=== PATIENT | female | born 1960 | race Caucasian/White ===

== ENCOUNTER 2020-05-23 12:52 | Outpatient (REF) | payer BC, SELFPAY ==
[2020-05-23 15:07] LABS: Alanine Aminotransferase 18 U/L (0-31); Aspartate Amino Transferase 19 U/L (5-31); Cholesterol 225 mg/dL; Glucose Fasting 96 mg/dL (60-99); HDL Cholesterol 63 mg/dL; LDL Cholesterol Calculated 129 mg/dl; Triglycerides 168 mg/dL
[2020-05-23 15:20] LABS: Vitamin D 25-OH Total 47.2 ng/mL (>30)
== END 2020-05-23 12:53 | disposition home or self-care (01) ==
LOC: HO.HMGCLDS 12:52
PROVIDERS: PCP Internal Medicine; Visit Provider Internal Medicine
DX: Z78.0 Asymptomatic menopausal state (principal); I10 Essential (primary) hypertension; Z00.01 Encounter for general adult medical examination with abnormal findings
CPT/HCPCS: 80061; 82306; 82947; 84450; 84460

== ENCOUNTER 2020-12-20 09:21 | Outpatient (REF) | payer BC, SELFPAY ==
[2020-12-20 11:15] LABS: MANUAL DIFF FLAG NO
[2020-12-20 11:27] LABS: Basophils Percent Auto 0.6 % (0-2); Eosinophils Absolute Auto 0.5 X10*3/uL (0.0-0.4); Hematocrit 35.9 % (37-47); Hemoglobin 11.7 g/dl (12.0-16.0); Imm Gran Abs Auto 0.02 X10*3/uL (0.00-0.03); Imm Gran Pct Auto 0.3 % (0.0-0.4); Lymphocytes Absolute Auto 1.8 X10*3/uL (1.2-4.9); Lymphocytes Percent Auto 24.9 % (20-40); Mean Corpuscular HGB Conc 32.6 g/dl (31.0-35.0); Mean Corpuscular Hemoglobin 28.3 pg (27.0-33.0); Mean Corpuscular Volume 86.7 fL (80-98); Mean Platelet Volume 12.2 fL (9.4-12.3); Monocytes Absolute Auto 0.5 X10*3/uL (0.1-1.2); Neutrophils Absolute Auto 4.2 X10*3/uL (2.0-8.3); Neutrophils Percent Auto 60.2 % (45-73); Platelet Count 200 X10*3/uL (160-400); Red Blood Count 4.14 X10*6/uL (4.20-5.50); Red Cell Distribution Width 13.3 % (11.0-16.0)
[2020-12-20 12:15] LABS: TSH reflex Free T4 0.93 uIU/mL (0.32-4.0); Vitamin D 25-OH Total 52.8 ng/mL (>30)
[2020-12-20 12:29] LABS: Alanine Aminotransferase 19 U/L (0-31); Anion Gap 15 (12-20); Aspartate Amino Transferase 20 U/L (5-31); Blood Urea Nitrogen 19 mg/dL (9-16); Calcium 9.8 mg/dL (8.4-10.2); Carbon Dioxide 24 mmol/L (22-29); Chloride 106 mmol/L (96-108); Cholesterol 208 mg/dL; Estimated Glomerular Filt Rate > 60; Glucose Fasting 100 mg/dL (60-99); HDL Cholesterol 64 mg/dL; LDL Cholesterol Calculated 118 mg/dl; Potassium 4.5 mmol/L (3.3-5.1); Sodium 140 mmol/L (135-145); Triglycerides 132 mg/dL
== END 2020-12-20 09:22 | disposition home or self-care (01) ==
LOC: HO.HMGCLDS 09:21
PROVIDERS: PCP Internal Medicine; Visit Provider Internal Medicine
DX: G47.00 Insomnia, unspecified (principal); I10 Essential (primary) hypertension; M85.859 Other specified disorders of bone density and structure, unspecified thigh; R73.01 Impaired fasting glucose; Z78.0 Asymptomatic menopausal state
CPT/HCPCS: 36415; 80048; 80061; 82306; 84443; 84450; 84460; 85025

== ENCOUNTER 2022-01-16 13:47 | Outpatient (REF) | payer BC, SELFPAY ==
[2022-01-16 16:27] LABS: MANUAL DIFF FLAG NO
[2022-01-16 16:29] LABS: Basophils Absolute Auto 0.1 X10*3/uL (0.0-0.2); Basophils Percent Auto 0.6 % (0-2); Eosinophils Absolute Auto 0.3 X10*3/uL (0.0-0.4); Eosinophils Percent Auto 4.1 % (0-4); Hematocrit 39.5 % (37.0-47.0); Imm Gran Abs Auto 0.03 X10*3/uL (0.00-0.03); Imm Gran Pct Auto 0.4 % (0.0-0.4); Lymphocytes Absolute Auto 1.9 X10*3/uL (1.2-4.9); Lymphocytes Percent Auto 24.1 % (20-40); Mean Corpuscular HGB Conc 32.9 g/dl (31.0-35.0); Mean Corpuscular Hemoglobin 29.2 pg (27.0-33.0); Mean Corpuscular Volume 88.8 fL (80.0-98.0); Mean Platelet Volume 11.7 fL (9.4-12.3); Monocytes Absolute Auto 0.7 X10*3/uL (0.1-1.2); Monocytes Percent Auto 8.5 % (2-11); Neutrophils Absolute Auto 4.9 x10*3/uL (2.0-8.3); Neutrophils Percent Auto 62.3 % (45-73); Platelet Count 241 X10*3/uL (160-400); Red Blood Count 4.45 X10*6/uL (4.20-5.50); Red Cell Distribution Width 13.9 % (11.0-16.0); White Blood Count 7.8 X10*3/uL (4.8-10.8)
[2022-01-16 16:42] LABS: Alanine Aminotransferase 19 U/L (0-31); Albumin Level 4.1 g/dL (3.5-5.0); Alkaline Phosphatase 100 U/L (39-117); Anion Gap 14 (12-20); Aspartate Amino Transferase 17 U/L (5-31); Bilirubin Total 0.7 mg/dL (0.0-1.0); Blood Urea Nitrogen 29 mg/dL (9-16); Calcium 9.9 mg/dL (8.4-10.2); Carbon Dioxide 28 mmol/L (22-29); Chloride 104 mmol/L (96-108); Estimated Glomerular Filt Rate > 60; Glucose Random 107 mg/dL (60-115); Potassium 4.9 mmol/L (3.3-5.1); Sodium 141 mmol/L (135-145)
[2022-01-16 16:43] LABS: Prothrombin Time 10.9 SEC (10.0-13.1)
[2022-01-16 16:46] LABS: Partial Thromboplastin Time 32.1 SEC (26.0-36.4)
== END 2022-01-16 13:48 | disposition home or self-care (01) ==
LOC: HO.HMGCLDS 13:47
PROVIDERS: Nurse Practitioner Family; PCP Internal Medicine; Visit Provider Internal Medicine
DX: Z13.89 Encounter for screening for other disorder (principal)
CPT/HCPCS: 36415; 80053; 85025; 85610; 85730

== ENCOUNTER 2022-06-06 10:07 | Outpatient (REF) | payer BC, SELFPAY ==
[2022-06-06 11:17] LABS: MANUAL DIFF FLAG NO
[2022-06-06 11:25] LABS: Basophils Percent Auto 0.7 % (0-2); Eosinophils Absolute Auto 0.5 X10*3/uL (0.0-0.4); Eosinophils Percent Auto 8.9 % (0-4); Hematocrit 37.5 % (37.0-47.0); Imm Gran Abs Auto 0.02 X10*3/uL (0.00-0.03); Imm Gran Pct Auto 0.3 % (0.0-0.4); Lymphocytes Absolute Auto 1.6 X10*3/uL (1.2-4.9); Mean Corpuscular Hemoglobin 28.6 pg (27.0-33.0); Mean Corpuscular Volume 89.5 fL (80.0-98.0); Mean Platelet Volume 11.9 fL (9.4-12.3); Monocytes Absolute Auto 0.4 X10*3/uL (0.1-1.2); Monocytes Percent Auto 7.5 % (2-11); Neutrophils Absolute Auto 3.2 x10*3/uL (2.0-8.3); Neutrophils Percent Auto 54.6 % (45-73); Platelet Count 204 X10*3/uL (160-400); Red Blood Count 4.19 X10*6/uL (4.20-5.50); Red Cell Distribution Width 13.4 % (11.0-16.0); White Blood Count 5.9 X10*3/uL (4.8-10.8)
[2022-06-06 11:37] LABS: Estimated Average Glucose 105 mg/dL; Hemoglobin A1c % 5.3 %
[2022-06-06 12:18] LABS: Alanine Aminotransferase 20 U/L (0-31); Anion Gap 12 (12-20); Aspartate Amino Transferase 18 U/L (5-31); Blood Urea Nitrogen 18 mg/dL (9-16); Calcium 9.3 mg/dL (8.4-10.2); Carbon Dioxide 27 mmol/L (22-29); Chloride 106 mmol/L (96-108); Cholesterol 244 mg/dL; Estimated Glomerular Filt Rate > 60; Glucose Fasting 115 mg/dL (60-99); HDL Cholesterol 65 mg/dL; Iron 79 mcg/dL (30-160); LDL Cholesterol Calculated 159 mg/dl; Percent Iron Saturation 26 % (15-50); Potassium 4.7 mmol/L (3.3-5.1); Sodium 140 mmol/L (135-145); Total Iron Binding Capacity 302 mcg/dL (228-428); Triglycerides 102 mg/dL; Unsaturated Iron Binding 223 ug/dL; Vitamin D 25-OH Total 36.6 ng/mL (>30)
== END 2022-06-06 10:08 | disposition home or self-care (01) ==
LOC: HO.HMGCLDS 10:07
PROVIDERS: Absent Provider Internal Medicine Gastroenterology; PCP Internal Medicine; Visit Provider Internal Medicine
DX: Z00.01 Encounter for general adult medical examination with abnormal findings (principal); I10 Essential (primary) hypertension; M85.859 Other specified disorders of bone density and structure, unspecified thigh; R73.01 Impaired fasting glucose; Z78.0 Asymptomatic menopausal state
CPT/HCPCS: 36415; 80048; 80061; 82306; 83036; 83540; 84450; 84460; 85025

== ENCOUNTER 2023-02-15 10:53 | Outpatient (AMB) | payer BC, SELFPAY ==
--- NOTE | 2023-02-15 10:57 | MHC.PC.OV ---
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 Allergies No Known Allergies Allergy (Verified 02/15/23 11:44) Medication List - Last Reconciled 02/15/23 by Haylie Hensley MD [id number] 50-300-40 mg 1 cap PO .bid PRN carvedilol 12.5 mg PO BID 90 days cholecalciferol (vitamin D3) 50 mcg PO DAILY flu vac qv 2019(18yr up)rc(PF) IM Lactobacillus rhamnosus GG (Culturelle) 1 cap PO DAILY losartan 100 mg PO DAILY Saccharomyces boulardii 250 mg PO DAILY zolpidem ER 12.5 mg PO BEDTIME PRN Tobacco use date assessed: 02/15/23 Dental Screening Dental Screen Date: 02/15/23 Did you have a dental visit in the last 12 months?: Yes Did you have a dental problem in the last 6 months where you did not have access to dental care?: No Was dental information given to patient?: Patient has dentist HPI Yearly exam HPI Details 62-year-old lady here today for her physical exam. She has chronic insomnia currently takes zolpidem ER 12.5 mg at bedtime which has been helping. Has hypertension currently on losartan 100 mg daily and carvedilol 12.5 mg twice a day. She has history of tension type headache, takes Fioricet as needed. Also has chronic reflux, takes probiotics which has been helping. Complains of tinnitus in both ears, with no decreased hearing reported, no headaches or disequilibrium reported. Has tried masking this with white noise which has not been ineffective. She also reports decreased sensation over dorsal aspect of right foot, no history of trauma or any strenuous exertion reported. No accompanying weakness. [facility] Medical History (Updated 02/15/23 @ 12:04 by Haylie Hensley MD) Tinnitus, bilateral Numbness of right foot Obesity (BMI 30-39.9) Chronic insomnia Facial lesion Lesion of skin of scalp Menopause Osteoarthritis, knee Impaired fasting glucose GERD (gastroesophageal reflux disease) Anxiety Osteopenia of hip Essential hypertension Insomnia Tension-type headache Surgical History History of ERCP Hx laparoscopic cholecystectomy History of total knee arthroplasty S/P bilateral breast reduction Family History Father CVA (cerebral vascular accident) CAD (coronary artery disease) Mother HTN (hypertension) Lung cancer Breast CA Sister Alcoholism Parkinson disease Substance abuse Social History Housing: House Alcohol intake: current Alcohol intake frequency: a few times a month Patient Tobacco Use Status: Never used Tobacco e-Cigarette/Vaping Use: Never Used Second Hand Smoke Exposure: No service: No Current occupational status: employed Cognitive needs: No Hearing needs: No Vision needs: No Female Reproductive History Menstrual Date of last pap smear: 07/06/21 History of abnormal pap smear: No Date of Mammogram: 01/07/23 History of abnormal mammogram: No Other: bone density done unsure date Questionnaire PHQ-9 Over the last 2 weeks, how often have you been bothered by any of the following problems? 1. Little interest or pleasure in doing things: not at all 2. Feeling down, depressed, or hopeless: not at all 3. Trouble falling or staying asleep, or sleeping too much: several days 4. Feeling tired or having little energy: several days 5. Poor appetite or overeating: not at all 6. Feeling bad about yourself - or that you are a failure or have let yourself or your family down: not at all 7. Trouble concentrating on things, such as reading the newspaper or watching television: not at all 8. Moving or speaking so slowly that other people could have noticed. Or the opposite - being so fidgety or restless that you have been moving around a lot more than usual: not at all 9. Thoughts that you would be better off or of hurting yourself in some way: not at all Total score: 2 Depression Screening Interpretation: Negative 97560 - PHQ-9 Billing: Yes Source: Developed by Drs. Tanner Woods, Renate Lloyd, Jasvir Galvan and colleagues, with an educational jennifer from [employer]. Thrive Questionnaire Date Thrive assessed: 02/15/23 I am a: Patient What is your living situation today?: I have a steady place to live Within the past 12 months, did the food you bought not last and you didn't have the money to get more?: Never true Within the past 12 months, did you worry whether your food would run out before you got money to buy more?: Never true Do you have trouble paying for medicines?: No Do you have trouble getting transportation to medical appointments?: No Do you have trouble paying your heating and electricity bill?: No Do you have trouble taking care of your child, family member or friend?: No Do you have trouble with day-to-day activities such as bathing, preparing meals, shopping, managing finances, etc.?: No Are you currently unemployed and looking for a job?: No Are you interested in more education?: No Please select the resources that you would like help with: None Currently or been in a relationship where the following occur: no concerns reported AUDIT C Alcohol Use Questionnaire (AUDIT-C) 1. How often do you have a drink containing alcohol?: 2-4 times a month 2. How many drinks containing alcohol do you have on a typical day when you are drinking?: 1 or 2 3. How often do you have six or more drinks on one occasion?: Never Total Score: 2 RAMONA-7 AMB Questionnaire RAMONA-7 Date RAMONA - 7 assessed: 02/15/23 Feeling nervous, anxious, or on edge: 0 = Not at all Not being able to stop or control worryin = Not at all Worrying too much about different things: 0 = Not at all Trouble relaxin = Several days Being so restless that it is hard to sit still: 1 = Several days Becoming easily annoyed or irritable: 0 = Not at all Feeling afraid as if something awful might happen: 0 = Not at all Total RAMONA-7 score (0-4 normal; 5-9 mild; 10-14 moderate; 15-21 severe): 2 Source: Developed by Drs. Tanner Woods, Jasvir Orourke and colleagues, with an educational jennifer from [employer]. RAMONA-7 Assessment Billing RAMONA-7 Assessment Tool: RAMONA-7 Assessment 60930 Review of Systems Const Denies chills, Denies fever(s), Denies frequent falls and Denies malaise Eyes Denies change in vision ENT Denies vertigo, Denies dizziness and Denies sore throat Card Denies chest pain at rest, Denies chest pain with activity, Denies diaphoresis, Denies dyspnea and Denies dyspnea on exertion Resp Denies cough, Denies dyspnea, Denies dyspnea on exertion and Denies wheezing GI Denies abdominal pain, Denies melena, Denies hematochezia, Denies constipation, Denies diarrhea and Denies loose stools Denies hematuria Musc Denies numbness and Denies tingling Skin/Breast Denies lesions Neuro Denies vertigo, Denies dizziness, Denies frequent falls, Denies numbness and Denies tingling Psych Reports no additional complaints Endo Reports no additional complaints Joce/Lymph Reports no additional complaints Aller/Immun Denies wheezing Physical exam (Primary Care) Vital Signs: Last Vital Signs Pulse 62 02/15/23 11:04 BP 120/80 02/15/23 11:04 Pulse Ox 97 02/15/23 11:04 Oxygen Delivery Method Room Air 02/15/23 11:04 BMI result Body Mass Index 39.9 BMI Assessment/Plan discussion: High BMI High, discussed plan: lifestyle, weight reduction, dietary and physical activity Tobacco/Smoking Status: Tobacco use Status Tobacco use date assessed 02/15/23 02/15/23 11:09 Patient Tobacco Use Status Never used Tobacco 02/15/23 10:57 e-Cigarette/Vaping Use Never Used 02/15/23 10:57 PHQ-9: PHQ-9 Score PHQ-9: Total score 2 02/15/23 11:55 Depression Screening Interpretation: Negative Thrive Assessment: Date of Thrive Assessment Date Thrive assessed 02/15/23 02/15/23 11:14 Currently or been in a relationship where the following occur: no concerns reported Const General: cooperative, comfortable and no acute distress Nutritional Appearance: obese Orientation/consciousness: patient oriented x3 HENMT Head: Yes normocephalic and Yes atraumatic Ears: hearing grossly normal bilaterally, external ears normal, TM's normal bilaterally and EAC's normal General nose exam: Normal external nose present Face and sinus: Yes face symmetric Mouth: Normal oral and palatal mucosa present Eyes General: appearance normal, both eyes and all related structures Neck Neck: Yes normal visual inspection, Yes no lymphadenopathy and Yes no meningeal signs Chest Breast/axilla palpation: normal palpation of the breasts Resp Effort & Inspection: normal respiratory effort Auscultation: clear to auscultation bilaterally Cardio Rate: regular rate Rhythm: regular rhythm Heart sounds: S1 normal heart sound present, S2 normal heart sound present and no murmurs GI Inspection: Yes obesity Palpation (GI): Soft to palpation, nontender, no guarding and no masses Auscultation: normal bowel sounds General: Yes no CVA tenderness Back/Spine/Pelvis Back: no CVA tenderness and No back tenderness Skin General skin exam: no rashes or lesions noted Neuro Other: Decreased sensation to touch and pinprick over dorsal aspect of right foot General: patient oriented x3, gait normal, tone normal, moves all extremities, no meningeal signs, no focal motor deficits and CN's II-XI intact bilaterally Extrem General: Yes full ROM, Yes no joint enlargement, Yes no clubbing, cyanosis or edema and Yes normal gait Psych Appearance: grossly normal Mental Status: mental status grossly normal Speech and movement: Normal speech and movement present Affect: normal affect Attitude: cooperative Thought process: Normal thought process present Thought content: Normal thought content present Insight: Good insight present (Psych) Judgement: Good judgement present (Psych) Assessment and Plan Assessment & Plan (1) Annual visit for general adult medical examination with abnormal findings: Code(s): Z00.01 - Encounter for general adult medical examination with abnormal findings Plan: Will check appropriate labs. Recommended dental visit every 6 months and regular eye exams, at least every 2 years. Take adequate calcium in diet and vitamin-D 3 at 2000 IU per cap once a day, in addition to weight-bearing exercises to help maintain good muscle tone and weight control. Instructed to do self-breast exam, and continue to get yearly mammogram, she is up-to-date with her screening colonoscopy done by Dr Foster, and is up-to-date with her cervical cancer screening. Advised to get her COVID booster and her yearly flu shot, up-to-date with her Tdap, had 1 dose of her Shingrix vaccine, reminded to get her series completed, (2) Essential hypertension: Code(s): I10 - Essential (primary) hypertension Plan: Blood pressure at goal of less than 130/80. Continue with current medication. Reinforced importance of following a low sodium diet, getting regular exercise, and lowering stress levels. (3) Osteopenia of hip: Code(s): M85.859 - Other specified disorders of bone density and structure, unspecified thigh Plan: Advised to do regular weight-bearing exercise, take adequate calcium from dietary sources and continue taking vitamin-D 3 at least 2000 units daily (4) GERD (gastroesophageal reflux disease): Code(s): K21.9 - Gastro-esophageal reflux disease without esophagitis Plan: Takes probiotics which has been helping (5) Impaired fasting glucose: Code(s): R73.01 - Impaired fasting glucose Plan: Your fasting blood sugars elevated above 100 mg/dL. Impaired glucose metabolism O2 at risk for developing diabetes mellitus type 2, as well as heart attack and stroke later on. Lifestyle changes at just weight loss, healthy eating habits, and regular exercise are important, and can prevent the progression to diabetes (6) Osteoarthritis, knee: Code(s): M17.10 - Unilateral primary osteoarthritis, unspecified knee (7) Chronic insomnia: Code(s): F51.04 - Psychophysiologic insomnia Plan: Continued on zolpidem as needed (8) Obesity (BMI 30-39.9): Code(s): E66.9 - Obesity, unspecified Plan: Currently sees Dr. Gardner in [facility], and is scheduled to get her gastric band removed and will be doing a sleeve gastrectomy later this year (9) Numbness of right foot: Code(s): R20.0 - Anesthesia of skin Plan: Ordered nerve conduction study of right lower extremity (10) Tinnitus, bilateral: Code(s): H93.13 - Tinnitus, bilateral Plan: referral to ENT for further evaluation and management of her tinnitus Orders: Orders Complete Blood Count Auto Diff 02/15/23 E66.9 - Obesity, unspecified, F51.04 - Psychophysiologic insomnia, I10 - Essential (primary) hypertension, K21.9 - Gastro-esophageal reflux disease without esophagitis, M17.10 - Unilateral primary osteoarthritis, unspecified knee, M85.859 - Other specified disorders of bone density and structure, unspecified thigh, R73.01 - Impaired fasting glucose, Z00.01 - Encounter for general adult medical examination with abnormal findings, Z78.0 - Asymptomatic menopausal state Lipid Panel 02/15/23 E66.9 - Obesity, unspecified, F51.04 - Psychophysiologic insomnia, I10 - Essential (primary) hypertension, K21.9 - Gastro-esophageal reflux disease without esophagitis, M17.10 - Unilateral primary osteoarthritis, unspecified knee, M85.859 - Other specified disorders of bone density and structure, unspecified thigh, R73.01 - Impaired fasting glucose, Z00.01 - Encounter for general adult medical examination with abnormal findings, Z78.0 - Asymptomatic menopausal state Vitamin B12 and Folate 02/15/23 E66.9 - Obesity, unspecified, F51.04 - Psychophysiologic insomnia, I10 - Essential (primary) hypertension, K21.9 - Gastro-esophageal reflux disease without esophagitis, M17.10 - Unilateral primary osteoarthritis, unspecified knee, M85.859 - Other specified disorders of bone density and structure, unspecified thigh, R73.01 - Impaired fasting glucose, Z00.01 - Encounter for general adult medical examination with abnormal findings, Z78.0 - Asymptomatic menopausal state Comprehensive Barton. Panel Fast 02/15/23 E66.9 - Obesity, unspecified, F51.04 - Psychophysiologic insomnia, I10 - Essential (primary) hypertension, K21.9 - Gastro-esophageal reflux disease without esophagitis, M17.10 - Unilateral primary osteoarthritis, unspecified knee, M85.859 - Other specified disorders of bone density and structure, unspecified thigh, R73.01 - Impaired fasting glucose, Z00.01 - Encounter for general adult medical examination with abnormal findings, Z78.0 - Asymptomatic menopausal state Vitamin D 25-OH Total 02/15/23 E66.9 - Obesity, unspecified, F51.04 - Psychophysiologic insomnia, I10 - Essential (primary) hypertension, K21.9 - Gastro-esophageal reflux disease without esophagitis, M17.10 - Unilateral primary osteoarthritis, unspecified knee, M85.859 - Other specified disorders of bone density and structure, unspecified thigh, R73.01 - Impaired fasting glucose, Z00.01 - Encounter for general adult medical examination with abnormal findings, Z78.0 - Asymptomatic menopausal state ECG 12 lead EKG 04/10/23 I10 - Essential (primary) hypertension, Z01.818 - Encounter for other preprocedural examination NE nerve conduction velocity 02/15/23 R20.0 - Anesthesia of skin Referrals Ear/Nose/Throat Referral H93.13 - Tinnitus, bilateral Medications: Refilled zolpidem ER 12.5 mg PO BEDTIME PRN 30 tabs 0RF insomnia Coding Level of Care Code Est Pt Prev Care 40-64y(98368) Diagnoses Annual visit for general adult medical examination with abnormal findings Z00.01 Essential hypertension I10 Osteopenia of hip M85.859 GERD (gastroesophageal reflux disease) K21.9 Impaired fasting glucose R73.01 Osteoarthritis, knee M17.10 Chronic insomnia F51.04 Obesity (BMI 30-39.9) E66.9 Numbness of right foot R20.0 Tinnitus, bilateral H93.13 Additional Codes RAMONA-7 Assessment Billing - RAMONA-7 Assessment Tool: RAMONA-7 Assessment 68525 ([id number])
[2023-02-15 11:04] VITALS: BP 120/80; PULSE 62; O2SAT 97; BMI 39.9
== END 2023-02-15 12:58 | disposition home or self-care (01) ==
PROVIDERS: Visit Provider Internal Medicine
DX: Z00.00 Encounter for general adult medical examination without abnormal findings (principal); I10 Essential (primary) hypertension; K21.9 Gastro-esophageal reflux disease without esophagitis; M85.859 Other specified disorders of bone density and structure, unspecified thigh; R73.01 Impaired fasting glucose; M17.10 Unilateral primary osteoarthritis, unspecified knee; F51.04 Psychophysiologic insomnia; E66.9 Obesity, unspecified; R20.0 Anesthesia of skin; H93.13 Tinnitus, bilateral
CPT/HCPCS: 99396

== ENCOUNTER 2023-12-30 09:33 | Outpatient (REF) | payer BC, SELFPAY ==
[2023-12-30 13:10] LABS: MANUAL DIFF FLAG NO
[2023-12-30 13:26] LABS: Basophils Percent Auto 0.6 % (0-2); Eosinophils Absolute Auto 0.3 X10*3/uL (0.0-0.4); Eosinophils Percent Auto 3.6 % (0-4); Hematocrit 39.4 % (37.0-47.0); Hemoglobin 12.7 g/dl (12.0-16.0); Imm Gran Abs Auto 0.02 X10*3/uL (0.00-0.03); Imm Gran Pct Auto 0.3 % (0.0-0.4); Lymphocytes Absolute Auto 1.4 X10*3/uL (1.2-4.9); Lymphocytes Percent Auto 19.4 % (20-40); Mean Corpuscular HGB Conc 32.2 g/dl (31.0-35.0); Mean Corpuscular Hemoglobin 29.2 pg (27.0-33.0); Mean Corpuscular Volume 90.6 fL (80.0-98.0); Mean Platelet Volume 12.2 fL (9.4-12.3); Monocytes Absolute Auto 0.5 X10*3/uL (0.1-1.2); Monocytes Percent Auto 7.1 % (2-11); Neutrophils Absolute Auto 4.9 x10*3/uL (2.0-8.3); Platelet Count 186 X10*3/uL (160-400); Red Blood Count 4.35 X10*6/uL (4.20-5.50); Red Cell Distribution Width 13.1 % (11.0-16.0); White Blood Count 7.2 X10*3/uL (4.8-10.8)
[2023-12-30 13:48] LABS: Alanine Aminotransferase 16 U/L (0-31); Alkaline Phosphatase 130 U/L (39-117); Anion Gap 14 (12-20); Aspartate Amino Transferase 19 U/L (5-31); Bilirubin Total 1.1 mg/dL (0.0-1.0); Blood Urea Nitrogen 12 mg/dL (9-16); Calcium 9.6 mg/dL (8.4-10.2); Carbon Dioxide 26 mmol/L (22-29); Chloride 105 mmol/L (96-108); Cholesterol 201 mg/dL (<200); Estimated Glomerular Filt Rate > 60; Glucose Fasting 109 mg/dL (60-99); HDL Cholesterol 59 mg/dL (>40); Iron 102 mcg/dL (30-160); LDL Cholesterol Calculated 121 mg/dL (<100); Percent Iron Saturation 41 % (15-50); Potassium 4.5 mmol/L (3.3-5.1); Sodium 140 mmol/L (135-145); Total Iron Binding Capacity 250 mcg/dL (228-428); Total Protein 6.9 g/dL (6.5-8.0); Triglycerides 108 mg/dL (<150); Unsaturated Iron Binding 148 ug/dL
[2023-12-30 14:10] LABS: Folate 10.9 ng/mL (> or = 4.0); Vitamin B12 487 pg/mL (200-900)
== END 2023-12-30 09:34 | disposition home or self-care (01) ==
LOC: HO.HMGCLDS 09:33
PROVIDERS: PCP Internal Medicine; Visit Provider Internal Medicine
DX: Z00.01 Encounter for general adult medical examination with abnormal findings (principal); I10 Essential (primary) hypertension; M85.859 Other specified disorders of bone density and structure, unspecified thigh; K21.9 Gastro-esophageal reflux disease without esophagitis; R73.01 Impaired fasting glucose; Z78.0 Asymptomatic menopausal state; M17.10 Unilateral primary osteoarthritis, unspecified knee; F51.04 Psychophysiologic insomnia; E66.9 Obesity, unspecified
CPT/HCPCS: 36415; 80053; 80061; 82306; 82607; 82746; 83540; 85025

== ENCOUNTER 2024-01-02 13:42 | Outpatient (AMB) | payer BC, SELFPAY ==
[2024-01-02 13:44] VITALS: BP 122/80; PULSE 59; O2SAT 96; BMI 30.7
--- NOTE | 2024-01-02 13:44 | A.OFFPC_ITS ---
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: No Accompanied by: Self / Same As Patient Allergies No Known Allergies Allergy (Verified 01/02/24 13:53) Medication List - Last Reconciled 01/02/24 by Haylie Hensley MD [id number] 50-300-40 mg 1 cap PO .bid PRN carvedilol 12.5 mg PO BID 90 days cholecalciferol (vitamin D3) 50 mcg PO DAILY dicyclomine 20 mg PO BID Lactobacillus rhamnosus GG (Culturelle) 1 cap PO DAILY losartan 100 mg PO DAILY Saccharomyces boulardii 250 mg PO DAILY zolpidem ER 12.5 mg PO BEDTIME PRN Tobacco use date assessed: 01/02/24 Fall risk assessment: No Falls in past year Last assessed Fall Risk: 01/02/24 Dental Screening Dental Screen Date: 01/02/24 Did you have a dental visit in the last 12 months?: Yes Did you have a dental problem in the last 6 months where you did not have access to dental care?: No Was dental information given to patient?: Patient has dentist HPI Follow Up HPI Details 63-year-old lady here today complaining of pain and increased sensitivity on dorsal aspect of right big toe. This has been present now for the last several weeks, no history of any injury. Patient states that it even bothers her to have like it touching her toe when she goes to bed. She also has a productive cough which has been present now for the last week, no improvement with sode-qav-mfaycso cough medications, has been having intermittent episodes of wheezing and chest congestion. Denies any accompanying fever or shortness of breath [facility] Medical History Tinnitus, bilateral Numbness of right foot Obesity (BMI 30-39.9) Chronic insomnia Facial lesion Lesion of skin of scalp Menopause Osteoarthritis, knee Impaired fasting glucose GERD (gastroesophageal reflux disease) Anxiety Osteopenia of hip Essential hypertension Insomnia Tension-type headache Surgical History History of ERCP Hx laparoscopic cholecystectomy History of total knee arthroplasty S/P bilateral breast reduction Family History Father CVA (cerebral vascular accident) CAD (coronary artery disease) Mother HTN (hypertension) Lung cancer Breast CA Sister Alcoholism Parkinson disease Substance abuse Social History Housing: House Alcohol intake: current Alcohol intake frequency: a few times a month Patient Tobacco Use Status: Never used Tobacco e-Cigarette/Vaping Use: Never Used Second Hand Smoke Exposure: No service: No Current occupational status: employed Cognitive needs: No Hearing needs: No Vision needs: No Questionnaire PHQ-9 Over the last 2 weeks, how often have you been bothered by any of the following problems? Depression Screening Interpretation: Negative Depression Screening Done: Yes 34580 - PHQ-9 Billing: Patient declined-do not bill Source: Developed by Drs. Tanner Woods, Renate Lloyd, Jasvir Galvan and colleagues, with an educational jennifer from [employer]. Thrive Questionnaire Date Thrive assessed: 01/02/24 I am a: Patient What is your living situation today?: I choose not to answer this question Within the past 12 months, did the food you bought not last and you didn't have the money to get more?: Never true Within the past 12 months, did you worry whether your food would run out before you got money to buy more?: Never true Do you have trouble paying for medicines?: No Do you have trouble getting transportation to medical appointments?: No Do you have trouble paying your heating and electricity bill?: No Do you have trouble taking care of your child, family member or friend?: No Do you have trouble with day-to-day activities such as bathing, preparing meals, shopping, managing finances, etc.?: No Are you currently unemployed and looking for a job?: No Are you interested in more education?: No Please select the resources that you would like help with: Housing/Detention Currently or been in a relationship where the following occur: No concerns reported THRIVE Score: 0 AUDIT C Alcohol Use Questionnaire (AUDIT-C) 1. How often do you have a drink containing alcohol?: Monthly or less 2. How many drinks containing alcohol do you have on a typical day when you are drinking?: 1 or 2 Total Score: 1 Score Reviewed/Action Taken: Yes RAMONA-7 AMB Questionnaire RAMONA-7 Date RAMONA - 7 assessed: 01/02/24 Feeling nervous, anxious, or on edge: 0 = Not at all Not being able to stop or control worryin = Not at all Worrying too much about different things: 0 = Not at all Trouble relaxin = Several days Being so restless that it is hard to sit still: 1 = Several days Becoming easily annoyed or irritable: 0 = Not at all Feeling afraid as if something awful might happen: 0 = Not at all Total RAMONA-7 score (0-4 normal; 5-9 mild; 10-14 moderate; 15-21 severe): 2 Source: Developed by Drs. Tanner Woods, Renate Lloyd, Jasvir Galvan and colleagues, with an educational jennifer from [employer]. RAMONA-7 Assessment Billing RAMONA-7 Assessment Tool: RAMONA-7 Assessment 32028 Review of Systems Const All systems reviewed & are unremarkable except as noted in HPI and below Physical exam (Primary Care) Vital Signs: Last Vital Signs Pulse 59 01/02/24 13:44 BP 122/80 01/02/24 13:44 Pulse Ox 96 01/02/24 13:44 Oxygen Delivery Method Room Air 01/02/24 13:44 BMI result Body Mass Index 30.7 BMI Assessment/Plan discussion: High BMI High, discussed plan: lifestyle, weight reduction, dietary and physical activity Tobacco/Smoking Status: Tobacco use Status Tobacco use date assessed 01/02/24 01/02/24 13:46 Patient Tobacco Use Status Never used Tobacco 01/02/24 13:46 e-Cigarette/Vaping Use Never Used 01/02/24 13:46 Depression Screening Interpretation: Negative Thrive Assessment: Date of Thrive Assessment Date Thrive assessed 01/02/24 01/02/24 13:46 Currently or been in a relationship where the following occur: No concerns reported Const General: cooperative, comfortable and no acute distress Nutritional Appearance: obese Orientation/consciousness: patient oriented x3 HENMT Head: Yes normocephalic and Yes atraumatic Ears: hearing grossly normal bilaterally and external ears normal General nose exam: Normal external nose present Face and sinus: Yes face symmetric Mouth: Normal oral and palatal mucosa present Eyes General: appearance normal, both eyes and all related structures Neck Neck: Yes normal visual inspection, Yes no lymphadenopathy and Yes no meningeal signs Resp Auscultation: wheezes scattered wheezes Cardio Rate: regular rate Rhythm: regular rhythm Heart sounds: S1 normal heart sound present, S2 normal heart sound present and no murmurs GI Inspection: Yes obesity Palpation (GI): Soft to palpation, nontender, no guarding and no masses Auscultation: normal bowel sounds General: Yes no CVA tenderness Back/Spine/Pelvis Back: no CVA tenderness and No back tenderness Skin General skin exam: no rashes or lesions noted Neuro Other: Decreased sensation to touch and pinprick over dorsal aspect of right foot General: patient oriented x3, gait normal, tone normal, moves all extremities, no meningeal signs, no focal motor deficits and CN's II-XI intact bilaterally Extrem General: Yes full ROM, Yes no joint enlargement, Yes no clubbing, cyanosis or edema and Yes normal gait Results Reviewed Results Reviewed: Name: Reta Harris Age/Sex: 63/F : 1960 Unit#: [id number] Attend Dr: Haylie Hensley MD Re12/30/23 Status: DEP REF Location: [facility] [address] Disch: SPEC : [id number] FARHAN: 12/30/23 STATUS: COMP REQ : [id number] RECD: 12/30/23-[address]: Haylie Hensley MD COMP: 12/30/231007 ENTERED: 12/30/23-1006 [facility] DR: ORDERED: CBC Auto Diff Test Result Flag Reference WBC 7.2 4.8-10.8 X10*3/ uL RBC 4.35 4.20-5.50 X10*6/uL HGB 12.7 12.0-16.0 g/dl HCT 39.4 37.0-47.0 % MCV 90.6 80.0-98.0 fL MCH 29.2 27.0-33.0 pg MCHC 32.2 31.0-35.0 g/dl RDW 13.1 11.0-16.0 % PLT 186 160-400 X10*3/uL MPV 12.2 9.4-12.3 fL Neut Pct Auto 69.0 45-73 % ImGran Pct Auto 0.3 0.0-0.4 % Lymp Pct Auto 19.4 L 20-40 % [place] Pct Auto 7.1 2-11 % Eos Pct Auto 3.6 0-4 % Baso Pct Auto 0.6 0-2 % NRBC Pct Auto 0.0 0.0-0.2 /100WBC ANC Neut Abs # 4.9 2.0-8.3 x10*3/uL ImGran Abs Auto 0.02 0.00-0.03 X10*3/uL Lymph Abs Auto 1.4 1.2-4.9 X10*3/uL [place] Abs Auto 0.5 0.1-1.2 X10*3/uL Eos Abs Auto 0.3 0.0-0.4 X10*3/uL Baso Abs Auto 0.0 0.0-0.2 X10*3/uL NRBC Abs Auto 0.000 0.0-0.012 X10*3/uL Name: Reta Harris Age/Sex: 63/F : 1960 Unit#: [id number] Attend Dr: Haylie Hensley MD Re12/30/23 Status: DEP REF Location: [facility] [address] Disch: SPEC : [id number] FARHAN: 12/30/23-100 STATUS: COMP REQ : [id number] RECD: 12/30/23-[address]: Haylie Hensley MD COMP: 12/30/23-1405 ENTERED: 12/30/23-[address]: ORDERED: CMP Fast, IRON PROF, Lipid Panel, Vitamin D 25-OH Test Result Flag Reference Sodium 140 135-145 mmol/L Potassium 4.5 3.3-5.1 mmol/L CL 105 96-108 mmol/L CO2 26 22-29 mmol/L Gap 14 12-20 BUN 12 9-16 mg/dL Creat 0.88 0.5-1.4 mg/dL EGFR > 60 NOTE: For -[place] individuals, multiply the result by 1.210. Chronic Kidney Disease: Estimated GFR < 60 mL/min/1.73m2 Severe Kidney Disease: Estimated GFR < 15 mL/min/1.73m2 FBS 109 H 60-99 mg/dL A fasting glucose from 100-125 mg/dl is considered impaired (pre-diabetes). CA 9.6 8.4-10.2 mg/dL Iron 102 30-160 mcg/dL TIBC 250 228-428 mcg/dL Saturation 41 15-50 % UIBC 148 ug/dL Total Bili 1.1 H 0.0-1.0 mg/dL AST (GOT) 19 5-31 U/L ALT (GPT) 16 0-31 U/L Protein, Total 6.9 6.5-8.0 g/dL Alb 4.0 3.5-5.0 g/dL Triglyceride 108 <150 mg/dL Desirable Triglyceride: less than 150 mg/dL Borderline High Triglyceride 150-199 mg/dL High Triglyceride: 200-499 mg/dL Very High Triglyceride: greater than or equal to 5OO mg/dL Cholesterol 201 H <200 mg/dL Desirable Cholesterol: less than 200 mg/dL Borderline High Cholesterol: 200-239 mg/dL High Cholesterol: greater than 239 mg/dL LDL Calculated 121 H <100 mg/dL Desirable LDL: less than 100 mg/dL Near Optimal/Above Optimal LDL: 110-129 mg/dL Borderline High LDL: 130-159 mg/dL High LDL: 160-189 mg/dL Very High LDL: greater than or equal to 190 mg/dL HDL 59 >40 mg/dL Desirable HDL: greater than 40 mg/dL Note: This HDL assay may give artificially low results in patients with liver disease. Alk Phos 130 H 39-117 U/L Vit D 25-OH Tot 65.0 >30 ng/mL Health Based Reference Values* < 20 ng/mL Deficient 20-30 ng/mL Insufficient > 30 ng/mL Sufficient Assessment and Plan Assessment & Plan (1) Paresthesia of left foot: Code(s): R20.2 - Paresthesia of skin Plan: Empirically prescribed gabapentin 100 mg to take at bedtime, may increase it to 100 mg if needed. Advised to call us back if no improvement on gabapentin (2) Acute bronchitis: Code(s): J20.9 - Acute bronchitis, unspecified Plan: Prescription sent for azithromycin Dosepak to take as directed return to clinic if no improvement after 5 days Orders: Orders Comprehensive [place]. Panel Fast 12/30/23 E66.9 - Obesity, unspecified, I10 - Essential (primary) hypertension, R73.01 - Impaired fasting glucose Complete Blood Count Auto Diff 12/30/23 E66.9 - Obesity, unspecified, I10 - Essential (primary) hypertension, R73.01 - Impaired fasting glucose Lipid Panel 12/30/23 E66.9 - Obesity, unspecified, I10 - Essential (primary) hypertension, R73.01 - Impaired fasting glucose IRON PROFILE 12/30/23 E66.9 - Obesity, unspecified, I10 - Essential (primary) hypertension, R73.01 - Impaired fasting glucose Medications: New gabapentin 100 mg PO BEDTIME 30 caps 1RF azithromycin For 250 mg dose pack: take 500 mg today (day 1), then 250 mg for 4 days (days 2-5) PO 6 tabs 0RF Coding Level of Care Code Est Pt Level 4 (82938) Diagnoses Paresthesia of left foot R20.2 Acute bronchitis J20.9 Additional Codes RAMONA-7 Assessment Billing - RAMONA-7 Assessment Tool: RAMONA-7 Assessment 21465 ([id number])
== END 2024-01-02 14:13 | disposition home or self-care (01) ==
PROVIDERS: PCP Internal Medicine; Visit Provider Internal Medicine
DX: R20.2 Paresthesia of skin (principal); J20.9 Acute bronchitis, unspecified
CPT/HCPCS: 99214

== ENCOUNTER 2024-02-20 15:29 | Outpatient (AMB) | payer BC, SELFPAY ==
[2024-02-20 16:12] VITALS: BP 130/90; PULSE 56; O2SAT 99; BMI 32.2
--- NOTE | 2024-02-20 16:12 | A.OFFPC_ITS ---
Vital Signs 02/20/24 16:12 Height 5 ft 2 in Weight 176 lb BMI 32.2 BP 130/90 H Blood Pressure Location Lt brachial Position Sitting Pulse 56 Pulse Source Pulse Oximeter Pulse Oximetry (%) 99 Oxygen Delivery Method Room Air Intake Visit Reasons: Follow up for numbness in right toe Intake Note: Pt is here today f/u numbness on Rt grt toe and top of foot no improvement Allergies No Known Allergies Allergy (Verified 02/23/24 09:14) Medication List - Last Reconciled 02/23/24 by Haylie Hensley MD albuterol sulfate 90 mcg/actuation 2 puffs inhalation Q6H PRN teoxrejlec-qigvfxmyneugi-pdsq 50-300-40 mg 1 cap PO .bid PRN carvedilol 12.5 mg PO BID 90 days cholecalciferol (vitamin D3) 50 mcg PO DAILY dicyclomine 20 mg PO BID gabapentin 300 mg PO BEDTIME Lactobacillus rhamnosus GG (Culturelle) 1 cap PO DAILY losartan 100 mg PO DAILY Saccharomyces boulardii 250 mg PO DAILY zolpidem ER 12.5 mg PO BEDTIME PRN Tobacco use date assessed: 01/02/24 Fall risk assessment: No Falls in past year Last assessed Fall Risk: 02/20/24 Dental Screening Dental Screen Date: 02/20/24 Did you have a dental visit in the last 12 months?: Yes Did you have a dental problem in the last 6 months where you did not have access to dental care?: No Was dental information given to patient?: Patient has dentist HPI Follow up for numbness in right toe HPI Details 63-year-old lady here today complaining still of persistent pain and numbness on top of her right great toe. This has been present now for the last several months and started after she received a massage. Currently on gabapentin 100 mg at bedtime, which she initially has helped but now pain is back. It gets worse when she wears closed shoes, pain aggravated by touching blankets, and constant rubbing rubbing a foot on the inside of the shoe. She is also here for follow-up on recent lab results. Which showed elevated fasting glucose at 109 mg/dL, and elevated alkaline phosphatase elevated alkaline phosphatase, but rest of her liver function test came within normal limits and lipid levels are also within normal limits [facility] Medical History (Updated 02/23/24 @ 10:44 by Haylie Hensley MD) Hyperesthesia Tinnitus, bilateral Numbness of right foot Obesity (BMI 30-39.9) Chronic insomnia Facial lesion Lesion of skin of scalp Menopause Osteoarthritis, knee Impaired fasting glucose GERD (gastroesophageal reflux disease) Anxiety Osteopenia of hip Essential hypertension Insomnia Tension-type headache Surgical History History of ERCP Hx laparoscopic cholecystectomy History of total knee arthroplasty S/P bilateral breast reduction Family History Father CVA (cerebral vascular accident) CAD (coronary artery disease) Mother HTN (hypertension) Lung cancer Breast CA Sister Alcoholism Parkinson disease Substance abuse Social History Housing: House Alcohol intake: current Alcohol intake frequency: a few times a month Patient Tobacco Use Status: Never used Tobacco e-Cigarette/Vaping Use: Never Used Second Hand Smoke Exposure: No service: No Current occupational status: employed Cognitive needs: No Hearing needs: No Vision needs: No Questionnaire Thrive Questionnaire Date Thrive assessed: 01/02/24 I am a: Patient What is your living situation today?: I choose not to answer this question Within the past 12 months, did the food you bought not last and you didn't have the money to get more?: Never true Within the past 12 months, did you worry whether your food would run out before you got money to buy more?: Never true Do you have trouble paying for medicines?: No Do you have trouble getting transportation to medical appointments?: No Do you have trouble paying your heating and electricity bill?: No Do you have trouble taking care of your child, family member or friend?: No Do you have trouble with day-to-day activities such as bathing, preparing meals, shopping, managing finances, etc.?: No Are you currently unemployed and looking for a job?: No Are you interested in more education?: No Please select the resources that you would like help with: None Currently or been in a relationship where the following occur: No concerns reported THRIVE Score: 0 AUDIT C Alcohol Use Questionnaire (AUDIT-C) 1. How often do you have a drink containing alcohol?: 2-4 times a month 2. How many drinks containing alcohol do you have on a typical day when you are drinking?: 1 or 2 3. How often do you have six or more drinks on one occasion?: Never Total Score: 2 RAMONA-7 AMB Questionnaire RAMONA-7 Date RAMONA - 7 assessed: 01/02/24 Feeling nervous, anxious, or on edge: 0 = Not at all Not being able to stop or control worryin = Not at all Worrying too much about different things: 0 = Not at all Trouble relaxin = Several days Being so restless that it is hard to sit still: 1 = Several days Becoming easily annoyed or irritable: 0 = Not at all Feeling afraid as if something awful might happen: 0 = Not at all Total RAMONA-7 score (0-4 normal; 5-9 mild; 10-14 moderate; 15-21 severe): 2 Source: Developed by Drs. Tanner Woods, Renate Lloyd, Jasvir Galvan and colleagues, with an educational jennifer from [employer]. Review of Systems Const All systems reviewed & are unremarkable except as noted in HPI and below Physical exam (Primary Care) Vital Signs: Last Vital Signs Pulse 56 02/20/24 16:12 BP 130/90 H 02/20/24 16:12 Pulse Ox 99 02/20/24 16:12 Oxygen Delivery Method Room Air 02/20/24 16:12 BMI result Body Mass Index 32.2 Tobacco/Smoking Status: Tobacco use Status Tobacco use date assessed 01/02/24 02/20/24 16:18 Patient Tobacco Use Status Never used Tobacco 02/20/24 16:18 e-Cigarette/Vaping Use Never Used 02/20/24 16:18 Thrive Assessment: Date of Thrive Assessment Date Thrive assessed 01/02/24 02/20/24 16:18 Currently or been in a relationship where the following occur: No concerns reported Const General: comfortable and no acute distress Nutritional Appearance: obese Orientation/consciousness: patient oriented x3 HENMT Head: Yes normocephalic Ears: external ears normal General nose exam: Normal external nose present Face and sinus: Yes face symmetric Mouth: Normal oral and palatal mucosa present Eyes General: appearance normal, both eyes and all related structures Neck Neck: Yes no lymphadenopathy Resp Auscultation: clear to auscultation bilaterally Cardio Rate: regular rate Rhythm: regular rhythm Heart sounds: S1 normal heart sound present and S2 normal heart sound present Back/Spine/Pelvis Back: No back tenderness Skin General skin exam: no rashes or lesions noted Neuro Other: Hyperesthesia noted on dorsal aspect left foot above right great toe and MTP General: patient oriented x3, gait normal, tone normal, moves all extremities, no focal motor deficits and CN's II-XI intact bilaterally Extrem General: Yes full ROM, Yes no joint enlargement, Yes no clubbing, cyanosis or edema and Yes normal gait Results Reviewed Results Reviewed: Name: Reta Harris Age/Sex: 63/F : 1960 Unit#: [id number] Attend Dr: Haylie Hensley MD Re12/30/23 Status: DEP REF Location: [facility] Disch: SPEC : [id number] FARHAN: 12/30/23-1004 STATUS: COMP REQ : [id number] RECD: 12/30/23-[address]: Haylie Hensley MD COMP: 12/30/23-1405 ENTERED: 12/30/23-[address]: ORDERED: CMP Fast, IRON PROF, Lipid Panel, Vitamin D 25-OH Test Result Flag Reference Sodium 140 135-145 mmol/L Potassium 4.5 3.3-5.1 mmol/L CL 105 96-108 mmol/L CO2 26 22-29 mmol/L Gap 14 12-20 BUN 12 9-16 mg/dL Creat 0.88 0.5-1.4 mg/dL EGFR > 60 NOTE: For -[place] individuals, multiply the result by 1.210. Chronic Kidney Disease: Estimated GFR < 60 mL/min/1.73m2 Severe Kidney Disease: Estimated GFR < 15 mL/min/1.73m2 FBS 109 H 60-99 mg/dL A fasting glucose from 100-125 mg/dl is considered impaired (pre-diabetes). CA 9.6 8.4-10.2 mg/dL Iron 102 30-160 mcg/dL TIBC 250 228-428 mcg/dL Saturation 41 15-50 % UIBC 148 ug/dL Total Bili 1.1 H 0.0-1.0 mg/dL AST (GOT) 19 5-31 U/L ALT (GPT) 16 0-31 U/L Protein, Total 6.9 6.5-8.0 g/dL Alb 4.0 3.5-5.0 g/dL Triglyceride 108 <150 mg/dL Desirable Triglyceride: less than 150 mg/dL Borderline High Triglyceride 150-199 mg/dL High Triglyceride: 200-499 mg/dL Very High Triglyceride: greater than or equal to 5OO mg/dL Cholesterol 201 H <200 mg/dL Desirable Cholesterol: less than 200 mg/dL Borderline High Cholesterol: 200-239 mg/dL High Cholesterol: greater than 239 mg/dL LDL Calculated 121 H <100 mg/dL Desirable LDL: less than 100 mg/dL Near Optimal/Above Optimal LDL: 110-129 mg/dL Borderline High LDL: 130-159 mg/dL High LDL: 160-189 mg/dL Very High LDL: greater than or equal to 190 mg/dL HDL 59 >40 mg/dL Desirable HDL: greater than 40 mg/dL Note: This HDL assay may give artificially low results in patients with liver disease. Alk Phos 130 H 39-117 U/L Vit D 25-OH Tot 65.0 >30 ng/mL Health Based Reference Values* < 20 ng/mL Deficient 20-30 ng/mL Insufficient > 30 ng/mL Sufficient Name: Reta Harris Age/Sex: 63/F : 1960 Unit#: [id number] Attend Dr: Haylie Hensley MD Re12/30/23 Status: DEP REF Location: [facility] Disch: SPEC : [id number] FARHAN: 12/30/23 STATUS: COMP REQ : [id number] RECD: 12/30/[address]: Haylie Hensley MD COMP: 12/30/23 ENTERED: 12/30/[address] [facility] [address]: ORDERED: CBC Auto Diff Test Result Flag Reference WBC 7.2 4.8-10.8 X10*3/uL RBC 4.35 4.20-5.50 X10*6/uL HGB 12.7 12.0-16.0 g/dl HCT 39.4 37.0-47.0 % MCV 90.6 80.0-98.0 fL MCH 29.2 27.0-33.0 pg MCHC 32.2 31.0-35.0 g/dl RDW 13.1 11.0-16.0 % PLT 186 160-400 X10*3/uL MPV 12.2 9.4-12.3 fL Neut Pct Auto 69.0 45-73 % ImGran Pct Auto 0.3 0.0-0.4 % Lymp Pct Auto 19.4 L 20-40 % [place]ocking Pct Auto 7.1 2-11 % Eos Pct Auto 3.6 0-4 % Baso Pct Auto 0.6 0-2 % NRBC Pct Auto 0.0 0.0-0.2 /100WBC ANC Neut Abs # 4.9 2.0-8.3 x10*3/uL ImGran Abs Auto 0.02 0.00-0.03 X10*3/uL Lymph Abs Auto 1.4 1.2-4.9 X10*3/uL [place]ing Abs Auto 0.5 0.1-1.2 X10*3/uL Eos Abs Auto 0.3 0.0-0.4 X10*3/uL Baso Abs Auto 0.0 0.0-0.2 X10*3/uL NRBC Abs Auto 0.000 0.0-0.012 X10*3/uL Assessment and Plan Assessment & Plan (1) Hyperesthesia: Code(s): R20.3 - Hyperesthesia Plan: Over dorsal aspect of right great toe and right MTP. Ordered nerve conduction study and referral to podiatry and neurology ordered. Ordered serum magnesium, vitamin-D level. Increased gabapentin dose to 300 mg at bedtime (2) Numbness of right foot: Code(s): R20.0 - Anesthesia of skin Plan: Nerve conduction study ordered (3) Impaired fasting glucose: Code(s): R73.01 - Impaired fasting glucose Plan: Your previous fasting blood sugars were elevated above 100 mg/dL. Impaired glucose metabolism increases the risk for developing diabetes mellitus type 2, as well as heart attack and stroke later on. Lifestyle changes that promotes weight loss, healthy eating habits, and regular exercise are important, and can prevent the progression to diabetes , repeat hemoglobin A1c ordered for six- month (4) Essential hypertension: Code(s): I10 - Essential (primary) hypertension Plan: Hypertension stable controlled on present treatment, continue with carvedilol 12.5 mg twice a day and losartan 100 mg daily. Repeat another BS basic metabol ic panel, lipid panel liver enzymes in six-months Orders: Orders Aspartate Amino Transferase 08/08/24 E66.9 - Obesity, unspecified, I10 - Essential (primary) hypertension, R73.01 - Impaired fasting glucose, Z78.0 - Asymptomatic menopausal state NE nerve conduction velocity 02/20/24 R20.0 - Anesthesia of skin Lipid Panel 08/08/24 E66.9 - Obesity, unspecified, I10 - Essential (primary) hypertension, R73.01 - Impaired fasting glucose, Z78.0 - Asymptomatic menopausal state Alanine Aminotransferase 08/08/24 E66.9 - Obesity, unspecified, I10 - Essential (primary) hypertension, R73.01 - Impaired fasting glucose, Z78.0 - Asymptomatic menopausal state Basic Metabolic Panel Fasting 08/08/24 E66.9 - Obesity, unspecified, I10 - Essential (primary) hypertension, R73.01 - Impaired fasting glucose, Z78.0 - Asymptomatic menopausal state Hemoglobin A1c 08/08/24 E66.9 - Obesity, unspecified, I10 - Essential (primary) hypertension, R73.01 - Impaired fasting glucose, Z78.0 - Asymptomatic menopausal state Vitamin D 25-OH Total 08/08/24 E66.9 - Obesity, unspecified, I10 - Essential (primary) hypertension, R73.01 - Impaired fasting glucose, Z78.0 - Asymptomatic menopausal state Magnesium 08/08/24 E66.9 - Obesity, unspecified, I10 - Essential (primary) hypertension, R73.01 - Impaired fasting glucose, Z78.0 - Asymptomatic menopausal state Referrals Neurology Referral R20.0 - Anesthesia of skin Podiatry Referral R20.0 - Anesthesia of skin Medications: New gabapentin 300 mg PO BEDTIME 30 caps 1RF Coding Level of Care Code Est Pt Level 4 (98597) Diagnoses Hyperesthesia R20.3 Numbness of right foot R20.0 Impaired fasting glucose R73.01 Essential hypertension I10
== END 2024-02-20 17:04 | disposition home or self-care (01) ==
PROVIDERS: PCP Internal Medicine; Visit Provider Internal Medicine
DX: R20.3 Hyperesthesia (principal); R20.0 Anesthesia of skin; R73.01 Impaired fasting glucose; I10 Essential (primary) hypertension
CPT/HCPCS: 99214

== ENCOUNTER 2024-03-20 12:48 | Outpatient (REF) | payer BC, SELFPAY ==
--- NOTE | 2024-03-20 | EMG_ITS ---
Chief complaint: Over a year of numbness on dorsal and plantar aspect of right foot. Pressure on right big toe. History of lumbar fusion 20 years ago, right leg radiculopathy at that time which improved after fusion. History of bilateral knee replacements 2018. Reason for referral: Evaluate for radiculopathy versus neuropathy Referred by: Dr. Hensley Procedure done: Right lower extremity NCS/EMG Precautions and/or limitations: Prior lumbar fusion The limb temperature was monitored continuously and remained between 32-36 degrees C during the performance of the NCS. Ulnar motor NCS was performed with moderate elbow flexion between 70-90 degrees, with across-elbow distance of 10 cm. Nerve Conduction Studies Anti Sensory Summary Table ?Stim Site NR Onset (ms) Norm Onset (ms) Peak (ms) Norm Peak (ms) O-P Amp (?V) Norm O-P Amp Site1 Site2 Delta-0 (ms) Dist (cm) Ramesh (m/s) Norm Ramesh (m/s) Right Sup Peron Anti Sensory (Ankle) Lateral Leg ? 1.5 2.3 <4.4 5.7 >5.0 Lateral Leg Ankle 1.5 14.0 93 Right Sural Anti Sensory (Lat Mall) Calf ? 2.8 3.8 <4.0 13.1 >5.0 Calf Lat Mall 2.8 14.0 50 Motor Summary Table ?Stim Site NR Onset (ms) Norm Onset (ms) O-P Amp (mV) Norm O-P Amp iAmp (mV) Amp (1st) (%) Site1 Site2 Delta-0 (ms) Dist (cm) Ramesh (m/s) Norm Ramesh (m/s) Right Peroneal Motor (Ext Dig Brev) Ankle ? 5.4 <4.0 5.0 >2.5 6.6 100.0 Ankle Ext Dig Brev 5.4 0.0 B Fib ? 11.0 4.2 5.8 84.0 B Fib Ankle 5.6 28.0 50 >40 Poplt ? 11.9 4.7 6.4 94.0 Poplt B Fib 0.9 6.0 67 >40 Right Tibial Motor (Abd Estevez Brev) Ankle ? 4.0 <5 8.0 >2.5 10.0 100.0 Ankle Abd Estevez Brev 4.0 0.0 Knee ? 12.0 7.1 9.1 88.8 Knee Ankle 8.0 38.0 48 >40 EMG ?Side Muscle Nerve Root Ins Act Fibs Psw Amp Dur Poly Recrt Int Pat Comment Right AbdHallucis MedPlantar S1-2 Nml Nml Nml Nml Nml 0 Nml Complete Right AntTibialis Dp Br Peron L4-5 Nml Nml Nml Nml Nml 0 Nml Complete Right PostTibialis Tibial L5, S1 Nml Nml Nml Nml Nml 0 Nml Complete Right MedGastroc Tibial S1-2 Nml Nml Nml Nml Nml 0 Nml Complete Right VastusMed Femoral L2-4 Nml Nml Nml Nml Nml 0 Nml Complete Right Peroneus Long Sup Br Peron L5-S1 Nml Nml Nml Nml Nml 0 Nml Complete FINDINGS: Right peroneal nerve showed prolonged distal latency, normal amplitude and normal conduction velocity. All other nerves tested, including right superficial peroneal sensory nerve, were within normal. Concentric needle EMG was performed in selected muscles of the right lower extremity. Study did not reveal signs of electric abnormalities as shown in the table above. IMPRESSION: 1. This is an abnormal study. 2. 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 3. There is no electrodiagnostic evidence for tibial neuropathy. lumbosacral plexopathy, lumbar radiculopathy, or peripheral neuropathy. Thank you for your kind referral. Glory Douglass MD, [place] Board Certified, [place] Board [employer] and Rehabilitation (ABPMR) Board Certified, [place] Board of Electrodiagnostic [employer] (ABEM) [place] [id number] [facility]
== END 2024-03-20 12:49 | disposition home or self-care (01) ==
LOC: HO.NEURO 12:48
PROVIDERS: PCP Internal Medicine; Visit Provider Internal Medicine
DX: R20.0 Anesthesia of skin (principal)
CPT/HCPCS: 95886; 95908

== ENCOUNTER → 2024-03-20 12:53 | Outpatient (BNV) | payer BC, SELFPAY | PROVIDERS: PCP Internal Medicine; Visit Provider Physical Medicine & Rehabilitation | DX: R20.0 Anesthesia of skin (principal); G62.89 Other specified polyneuropathies | CPT/HCPCS: 95886; 95908 ==

== ENCOUNTER 2024-07-02 14:56 | Outpatient (AMB) | payer BC, SELFPAY ==
[2024-07-02 15:04] VITALS: BP 126/74; PULSE 68; RESP 14; TEMP 36.7; O2SAT 98; BMI 32.7
--- NOTE | 2024-07-02 15:04 | MHC.PC.OV ---
Vital Signs 07/02/24 15:04 Height 5 ft 2 in Weight 179 lb BMI 32.7 BP 126/74 Blood Pressure Location Rt brachial Position Sitting Respiration 14 Pulse 68 Pulse Source Pulse Oximeter Temp 98.1 F Temp Source Oral Pulse Oximetry (%) 98 Oxygen Delivery Method Room Air Intake Visit Reasons: Numbness in toe f/u Intake Note: Pt is here today c/o Rt grt toe numbness Allergies No Known Allergies Allergy (Verified 07/02/24 15:56) Medication List - Last Reconciled 07/02/24 by Haylie Hensley MD albuterol sulfate 90 mcg/actuation 2 puffs inhalation Q6H PRN jyyqmugmnw-vvrzobtslhyxi-slmm 50-300-40 mg 1 cap PO .bid PRN carvedilol 12.5 mg PO BID 90 days cholecalciferol (vitamin D3) 50 mcg PO DAILY dicyclomine 20 mg PO BID losartan 100 mg PO DAILY Saccharomyces boulardii 250 mg PO DAILY zolpidem ER 12.5 mg PO BEDTIME PRN Tobacco use date assessed: 07/02/24 Fall risk assessment: No Falls in past year Last assessed Fall Risk: 07/02/24 Dental Screening Dental Screen Date: 07/02/24 Did you have a dental visit in the last 12 months?: Yes Did you have a dental problem in the last 6 months where you did not have access to dental care?: No Was dental information given to patient?: Patient has dentist HPI Numbness in toe f/u HPI Details 64-year-old lady here today for follow-up. Has been having experiencing tingling and numbness in right lower extremity going down to right big toe, with nerve conduction study showing chronic peroneal neuropathy. Denies having had any direct trauma to the area, no prolonged immobilization. She has been seen at [facility] Physical therapy and had therapeutic exercises, and dry needling, to release peroneal nerve, and patient has received relief with treatment given. Still having occasional numbness and tingling in right big toe, but she is still continue with the wound exercises taught her at physical therapy [facility] Medical History (Updated 07/02/24 @ 16:03 by Haylie Hensley MD) Peroneal neuropathy Hyperesthesia Tinnitus, bilateral Numbness of right foot Obesity (BMI 30-39.9) Chronic insomnia Facial lesion Lesion of skin of scalp Menopause Osteoarthritis, knee Impaired fasting glucose GERD (gastroesophageal reflux disease) Anxiety Osteopenia of hip Essential hypertension Insomnia Tension-type headache Surgical History History of ERCP Hx laparoscopic cholecystectomy History of total knee arthroplasty S/P bilateral breast reduction Family History Father CVA (cerebral vascular accident) CAD (coronary artery disease) Mother HTN (hypertension) Lung cancer Breast CA Sister Alcoholism Parkinson disease Substance abuse Social History Housing: House Alcohol intake: current Alcohol intake frequency: a few times a month Patient Tobacco Use Status: Never used Tobacco e-Cigarette/Vaping Use: Never Used Second Hand Smoke Exposure: No service: No Current occupational status: employed Cognitive needs: No Hearing needs: No Vision needs: No Questionnaire PHQ-9 Over the last 2 weeks, how often have you been bothered by any of the following problems? 1. Little interest or pleasure in doing things: not at all 2. Feeling down, depressed, or hopeless: not at all 3. Trouble falling or staying asleep, or sleeping too much: not at all 4. Feeling tired or having little energy: not at all 5. Poor appetite or overeating: not at all 6. Feeling bad about yourself - or that you are a failure or have let yourself or your family down: not at all 7. Trouble concentrating on things, such as reading the newspaper or watching television: not at all 8. Moving or speaking so slowly that other people could have noticed. Or the opposite - being so fidgety or restless that you have been moving around a lot more than usual: not at all 9. Thoughts that you would be better off or of hurting yourself in some way: not at all Total score: 0 Depression Screening Interpretation: Negative Depression Screening Done: Yes 84784 - PHQ-9 Billing: Yes Source: Developed by Drs. Tanner Woods, Renate Lloyd, Jasvir Galvan and colleagues, with an educational jennifer from [employer]. Thrive Questionnaire Date Thrive assessed: 07/02/24 I am a: Patient What is your living situation today?: I have a steady place to live Within the past 12 months, did the food you bought not last and you didn't have the money to get more?: Never true Within the past 12 months, did you worry whether your food would run out before you got money to buy more?: Never true Do you have trouble paying for medicines?: No Do you have trouble getting transportation to medical appointments?: No Do you have trouble paying your heating and electricity bill?: No Do you have trouble taking care of your child, family member or friend?: No Do you have trouble with day-to-day activities such as bathing, preparing meals, shopping, managing finances, etc.?: No Are you currently unemployed and looking for a job?: No Are you interested in more education?: No Please select the resources that you would like help with: None Currently or been in a relationship where the following occur: No concerns reported THRIVE Score: 0 AUDIT C Alcohol Use Questionnaire (AUDIT-C) 1. How often do you have a drink containing alcohol?: 2-4 times a month 2. How many drinks containing alcohol do you have on a typical day when you are drinking?: 1 or 2 3. How often do you have six or more drinks on one occasion?: Never Total Score: 2 RAMONA-7 AMB Questionnaire RAMONA-7 Date RAMONA - 7 assessed: 07/02/24 Feeling nervous, anxious, or on edge: 0 = Not at all Not being able to stop or control worryin = Not at all Worrying too much about different things: 0 = Not at all Trouble relaxin = Several days Being so restless that it is hard to sit still: 1 = Several days Becoming easily annoyed or irritable: 0 = Not at all Feeling afraid as if something awful might happen: 0 = Not at all Total RAMONA-7 score (0-4 normal; 5-9 mild; 10-14 moderate; 15-21 severe): 2 Source: Developed by Drs. Tanner Woods, Renate Lloyd, Jasvir Galvan and colleagues, with an educational jennifer from [employer]. Review of Systems Const All systems reviewed & are unremarkable except as noted in HPI and below Physical exam (Primary Care) Vital Signs: Last Vital Signs Temp 98.1 F 07/02/24 15:04 Pulse 68 07/02/24 15:04 Resp 14 07/02/24 15:04 BP 126/74 07/02/24 15:04 Pulse Ox 98 07/02/24 15:04 Oxygen Delivery Method Room Air 07/02/24 15:04 BMI result Body Mass Index 32.7 Tobacco/Smoking Status: Tobacco use Status Tobacco use date assessed 07/02/24 07/02/24 15:06 Patient Tobacco Use Status Never used Tobacco 07/02/24 15:06 e-Cigarette/Vaping Use Never Used 07/02/24 15:06 PHQ-9: PHQ-9 Score PHQ-9: Total score 0 07/02/24 15:06 Depression Screening Interpretation: Negative Thrive Assessment: Date of Thrive Assessment Date Thrive assessed 07/02/24 07/02/24 15:06 Currently or been in a relationship where the following occur: No concerns reported Const General: comfortable and no acute distress Orientation/consciousness: patient oriented x3 Back/Spine/Pelvis Back: No back tenderness Skin General skin exam: no rashes or lesions noted Neuro General: patient oriented x3, gait normal, tone normal, moves all extremities, no focal motor deficits and CN's II-XI intact bilaterally Extrem General: Yes full ROM, Yes no joint enlargement, Yes no clubbing, cyanosis or edema and Yes normal gait Coding Level of Care Code Est Pt Level 3 (16439) Diagnoses Peroneal neuropathy G57.30 Additional Codes PHQ-9 - 30314 - PHQ-9 Billing: Yes ([id number]) Assessment & Plan Assessment & Plan (1) Peroneal neuropathy: Code(s): G57.30 - Lesion of lateral popliteal nerve, unspecified lower limb Category: Medical Plan: Improving with physical therapy, already completed, still continuing to do exercises taught at physical therapy. Patient interested in also trying acupuncture, she is also exploring going to go acupuncture Orders: Orders Vitamin B12 and Folate Today Z98.890 - Other specified postprocedural states
== END 2024-07-02 15:58 | disposition home or self-care (01) ==
PROVIDERS: PCP Internal Medicine; Visit Provider Internal Medicine
DX: G57.30 Lesion of lateral popliteal nerve, unspecified lower limb (principal)

== ENCOUNTER → 2024-07-02 14:56 | Outpatient (BNVA) | payer BC, SELFPAY | PROVIDERS: PCP Internal Medicine; Visit Provider Internal Medicine | DX: G57.30 Lesion of lateral popliteal nerve, unspecified lower limb (principal) | CPT/HCPCS: 96127 ==

== ENCOUNTER 2024-09-21 09:24 | Outpatient (AMB) | payer BC, SELFPAY ==
--- NOTE | 2024-09-21 10:25 | A.OFFPC_ITS ---
Vital Signs 09/21/24 10:35 Height 5 ft 2 in Weight 180 lb BMI 32.9 BP 122/70 Blood Pressure Location Lt brachial Position Sitting Respiration 17 Pulse 56 Pulse Source Pulse Oximeter Temp 98.1 F Temp Source Oral Pulse Oximetry (%) 96 Oxygen Delivery Method Room Air Intake Visit Reasons: PE Intake Note: Pt is here today for her PE: , papsmear 07/06/21, colonoscopy 08/09/23 Allergies No Known Allergies Allergy (Verified 09/21/24 10:27) Medication List - Last Reconciled 10/04/24 by Haylie Hensley MD plxvnukzym-atdommmrwrpkw-dapw 50-300-40 mg 1 cap PO .bid PRN carvedilol 12.5 mg PO BID 90 days cholecalciferol (vitamin D3) 50 mcg PO DAILY dicyclomine 20 mg PO BID losartan 100 mg PO DAILY Saccharomyces boulardii 250 mg PO DAILY zolpidem ER 12.5 mg PO BEDTIME PRN Tobacco use date assessed: 09/21/24 Fall risk assessment: No Falls in past year Last assessed Fall Risk: 09/21/24 Dental Screening Dental Screen Date: 09/21/24 Did you have a dental visit in the last 12 months?: Yes Did you have a dental problem in the last 6 months where you did not have access to dental care?: No Was dental information given to patient?: Patient has dentist HPI PE HPI Details 64-year-old lady here today for her phys ical exam. She has chronic insomnia currently taking zolpidem ER 12.5 mg at bedtime, which has been helping. Has hypertension stable and controlled on present treatment with losartan 100 mg daily and carvedilol 12.5 mg twice a day. Takes an occasional Fioricet for tension headache. Currently on dicyclomine 20 mg 1 tablet twice a day for treatment of IBS, currently followed by Dr. Foster at [facility] clinic. She is up-to-date with her screening mammogram and cervical cancer screening, goes bone density scan and screening colonoscopy. Had recent fasting labs done August 2024 which showed elevated fasting glucose with a normal hemoglobin A1c at 5.9%, fasting lipids showed elevated cholesterol and LDL cholesterol with normal triglycerides and HDL cholesterol, vitamin-D levels within normal limits. [facility] Medical History (Updated 10/04/24 @ 14:19 by Haylie Hensley MD) Dyslipidemia Osteopenia of multiple sites Peroneal neuropathy Hyperesthesia Tinnitus, bilateral Numbness of right foot Obesity (BMI 30-39.9) Chronic insomnia Facial lesion Lesion of skin of scalp Menopause Osteoarthritis, knee Impaired fasting glucose GERD (gastroesophageal reflux disease) Anxiety Essential hypertension Insomnia Tension-type headache Surgical History History of ERCP Hx laparoscopic cholecystectomy History of total knee arthroplasty S/P bilateral breast reduction Family History Father CVA (cerebral vascular accident) CAD (coronary artery disease) Mother HTN (hypertension) Lung cancer Breast CA Sister Alcoholism Parkinson disease Substance abuse Social History Housing: House Alcohol intake: current Alcohol intake frequency: a few times a month Patient Tobacco Use Status: Never used Tobacco e-Cigarette/Vaping Use: Never Used Second Hand Smoke Exposure: No service: No Current occupational status: employed Cognitive needs: No Hearing needs: No Vision needs: No Female Reproductive History Menstrual Date of last pap smear: 07/06/21 (Goes to [facility] O[facility]) Questionnaire PHQ-9 Over the last 2 weeks, how often have you been bothered by any of the following problems? 1. Little interest or pleasure in doing things: not at all 2. Feeling down, depressed, or hopeless: not at all 3. Trouble falling or staying asleep, or sleeping too much: not at all 4. Feeling tired or having little energy: not at all 5. Poor appetite or overeating: not at all 6. Feeling bad about yourself - or that you are a failure or have let yourself or your family down: not at all 7. Trouble concentrating on things, such as reading the newspaper or watching television: not at all 8. Moving or speaking so slowly that other people could have noticed. Or the opposite - being so fidgety or restless that you have been moving around a lot more than usual: not at all 9. Thoughts that you would be better off or of hurting yourself in some way: not at all Total score: 0 Depression Screening Interpretation: Negative Depression Screening Done: Yes 90507 - PHQ-9 Billing: Yes Source: Developed by Drs. Tanner Woods, Jasvir Orourke and colleagues, with an educational jennifer from [employer]. Thrive Questionnaire Date Thrive assessed: 09/21/24 I am a: Patient What is your living situation today?: I have a steady place to live Within the past 12 months, did the food you bought not last and you didn't have the money to get more?: Never true Within the past 12 months, did you worry whether your food would run out before you got money to buy more?: Never true Do you have trouble paying for medicines?: No Do you have trouble getting transportation to medical appointments?: No Do you have trouble paying your heating and electricity bill?: No Do you have trouble taking care of your child, family member or friend?: No Do you have trouble with day-to-day activities such as bathing, preparing meals, shopping, managing finances, etc.?: No Are you currently unemployed and looking for a job?: No Are you interested in more education?: No Please select the resources that you would like help with: None Currently or been in a relationship where the following occur: No concerns reported THRIVE Score: 0 RAMONA-7 AMB Questionnaire RAMONA-7 Date RAMONA - 7 assessed: 07/02/24 Source: Developed by Drs. Tanner Woods, Jasvir Orourke and colleagues, with an educational jennifer from [employer]. Review of Systems Const All systems reviewed & are unremarkable except as noted in HPI and below Denies fever(s), Denies frequent falls and Denies malaise Eyes Denies change in vision ENT Denies vertigo, Denies dizziness and Denies sore throat Card Denies chest pain at rest, Denies chest pain with activity and Denies dyspnea Resp Denies cough and Denies dyspnea GI Denies abdominal pain, Denies melena, Denies hematochezia, Denies constipation and Denies diarrhea Reports no additional complaints Musc Reports arthralgias (knee), Denies joint swelling and Reports stiffness Skin/Breast Denies lesions Neuro Denies vertigo, Denies dizziness and Denies frequent falls Psych Reports no additional complaints Endo Reports no additional complaints Joce/Lymph Reports no additional complaints Aller/Immun Reports no additional complaints Physical exam (Primary Care) Vital Signs: Last Vital Signs Temp 98.1 F 09/21/24 10:35 Pulse 56 09/21/24 10:35 Resp 17 09/21/24 10:35 BP 122/70 09/21/24 10:35 Pulse Ox 96 09/21/24 10:35 Oxygen Delivery Method Room Air 09/21/24 10:35 BMI result Body Mass Index 32.9 Tobacco/Smoking Status: Tobacco use Status Tobacco use date assessed 09/21/24 09/21/24 10:29 Patient Tobacco Use Status Never used Tobacco 09/21/24 10:25 e-Cigarette/Vaping Use Never Used 09/21/24 10:25 PHQ-9: PHQ-9 Score PHQ-9: Total score 0 09/21/24 11:13 Depression Screening Interpretation: Negative Thrive Assessment: Date of Thrive Assessment Date Thrive assessed 09/21/24 09/21/24 10:29 Currently or been in a relationship where the following occur: No concerns reported Const General: comfortable and no acute distress Orientation/consciousness: patient oriented x3 HENMT Head: Yes normocephalic Ears: external ears normal, TM's normal bilaterally and EAC's normal General nose exam: Normal external nose present Face and sinus: Yes face symmetric Mouth: Normal oral and palatal mucosa present and moist mucous membranes Eyes General: appearance normal, both eyes and all related structures Neck Neck: Yes full ROM, Yes no lymphadenopathy and Yes supple Resp Auscultation: clear to auscultation bilaterally Cardio Rate: regular rate Rhythm: regular rhythm Heart sounds: S1 normal heart sound present and S2 normal heart sound present GI Palpation (GI): Soft to palpation, nontender, no guarding and no masses Auscultation: normal bowel sounds General: Yes deferred Back/Spine/Pelvis Back: No back tenderness Skin General skin exam: no rashes or lesions noted Neuro General: patient oriented x3, gait normal, tone normal, moves all extremities, no focal motor deficits and CN's II-XI intact bilaterally Extrem General: Yes full ROM, Yes no joint enlargement, Yes no clubbing, cyanosis or edema and Yes normal gait Psych Appearance: grossly normal and well kempt Mental Status: mental status grossly normal Speech and movement: Normal speech and movement present Affect: normal affect Coding Level of Care Code Est Pt Prev Care >65y(44301) Diagnoses Annual visit for general adult medical examination with abnormal findings Z00.01 Chronic insomnia F51.04 Essential hypertension I10 Osteopenia of multiple sites M85.89 Impaired fasting glucose R73.01 Dyslipidemia E78.5 Additional Codes PHQ-9 - 93491 - PHQ-9 Billing: Yes ([id number]) Assessment & Plan Assessment & Plan (1) Annual visit for general adult medical examination with abnormal findings: Code(s): Z00.01 - Encounter for general adult medical examination with abnormal findings Plan: Reviewed recent results of labs done at [facility] 08/28/2024 which showed fasting glucose in the prediabetic range at 109 mg/dL, with normal electrolytes, renal function, total cholesterol is elevated at 213 with LDL cholesterol at 138 with a HDL cholesterol of 58 and triglycerides 107 mg/dL. Her hemoglobin A1c is at 5.9%, normal vitamin-D level at 31.9, normal magnesium level and liver enzymes. Continued regular dental visit every 6 months and regular eye exams, at least every 2 years. Take adequate calcium in diet and vitamin-D 3 at 2000 IU per cap once a day, in addition to weight-bearing exercises to help maintain good muscle tone and weight control. Instructed to do self-breast exam, and continue to get yearly mammogram, currently up-to-date goes to [facility]. Up-to-date with her cervical cancer screening, and screening colonoscopy done by Dr. Foster due again in 2033. (2) Chronic insomnia: Code(s): F51.04 - Psychophysiologic insomnia Category: Medical Plan: Takes zolpidem ER 12.5 mg at bedtime (3) Essential hypertension: Code(s): I10 - Essential (primary) hypertension Category: Medical Plan: Blood pressure at goal of less than 130/80. Continue with current medication. Reinforced importance of following a low sodium diet, getting regular exercise, and lowering stress levels. (4) Osteopenia of multiple sites: Code(s): M85.89 - Other specified disorders of bone density and structure, multiple sites Category: Medical Plan: Continue regular weight-bearing exercise, take adequate calcium from dietary sources and continue taking vitamin-D 3 supplements at least 2000 units daily. Up-to-date with her bone density scan, done at [facility] (5) Impaired fasting glucose: Code(s): R73.01 - Impaired fasting glucose Category: Medical Plan: Your previous fasting blood sugars were elevated above 100 mg/dL. Hemoglobin A1c however on last check August 2024 was normal at 5.9%. Impaired glucose metabolism increases the risk for developing diabetes mellitus type 2, as well as heart attack and stroke later on. Lifestyle changes that promotes weight loss, healthy eating habits, and regular exercise are important, and can prevent the progression to diabetes (6) Dyslipidemia: Code(s): E78.5 - Hyperlipidemia, unspecified Category: Medical Plan: Reviewed recent fasting lipid profile with patient with elevated LDL cholesterol and total cholesterol . Stressed importance of adhering to a low-cholesterol diet and regular exercise, at least 30 minutes 3 to 4 times a week. Advised patient to make healthy food choices, eat more fruits, vegetables, whole grains, wild caught fish and low-fat dairy. Limit amount of meat and fried or fatty food products, as well as processed foods and fast foods. Medications: Refilled carvedilol 12.5 mg PO BID 180 tabs 4RF 90 days I10 - Essential (primary) hypertension losartan 100 mg PO DAILY 90 tabs 4RF
--- OUTSIDE RECORDS SUMMARY | 2024-09-21 10:25 | XMS_ITS | Clinical Summary ---
Author Organization [facility] Address [address] [place] [address] Care Team Providers Care Sleeping Car Conductor Name Role Phone Unavailable Primary Care Provider Unavailabl e Social History Tobacco Use Types Packs/Day Years Used Date Smoking Tobacco: Never Assessed Sex and Gender Information Value Date Recorded Sex Assigned at Not on file Gender Identity Not on file Sexual Orientation Not on file Job Start Date Occupation Industry Not on file Not on file Not on file Plan of Treatment Not on file
--- OUTSIDE RECORDS SUMMARY | 2024-09-21 10:25 | XMS_ITS | Clinical Summary ---
Author Organization [facility] Address [address] [place] [address] Care Team Providers Care Technology Lab Teacher Name Role Phone Pcp, No Primary Care Provider Unavailabl e Allergies No known active allergies Medications Medication Sig Dispensed Refills Start Date End Date Status carvedilol (COREG) 12.5 MG tablet 02/21/2021 Active eszopiclone (LUNESTA) 2 MG tablet Take 2 mg by mouth nightly as needed. as needed for insomnia 01/18/2021 Active losartan (COZAAR) 100 MG tablet 02/21/2021 Active zolpidem (AMBIEN CR) 12.5 MG CR tablet Take 12.5 mg by mouth nightly as needed. as needed for insomnia 04/15/2021 Active Active Problems No known active problems Immunizations Name Administration Dates Next Due Influenza Inactivated/Split Preservative Free IM 02/10/2010 Typhoid Inactivated 02/10/2010 Social History Tobacco Use Types Packs/Day Years Used Date Smoking Tobacco: Never Smokeless Tobacco: Never Sex and Gender Information Value Date Recorded Sex Assigned at Not on file Gender Identity Not on file Sexual Orientation Not on file Last Filed Vital Signs Vital Sign Reading Time Taken Comments Blood Pressure 112/80 04/20/2021 11:41 AM EST Pulse 64 04/20/2021 11:41 AM EST Temperature 36.8 ??C (98.2 ??F) 04/20/2021 11:[address] Respiratory Rate - - Oxygen Saturation 98% 04/20/2021 11:41 AM EST Inhaled Oxygen Concentration - - Weight 93 kg (205 lb) 04/20/2021 11:41 AM EST Height - - Body Mass Index - - Plan of Treatment Health Maintenance Due Date Last Done Comments Hepatitis C Virus Screening 1959 HIV Screening 1972 DTaP/Tdap/Td Vaccines (1 - Tdap) 1978 Pap Smear (Ages 21-65) 1980 Mammogram 1999 Colonoscopy 2004 Pneumococcal Vaccines 50+ (1 of 1 - PCV) 2009 Zoster (Shingles) Vaccine (1 of 2) 2009 Influenza Vaccine 01/09/2024 02/10/2010 COVID-19 Vaccine ( - 2023-2 5 season) 2024 DXA Bone Density (Females,Ag es 65 and older) 2024 RSV Vaccine 60 years and old er and Patients (1 - 1-dose 75+ series) 2034 Hepatitis B Vaccines Aged Out No long er eligible based on patient's age to complete this topic Care Teams Technology Lab Teacher Relationship Specialty Start Date End Date Pcp, No PCP - General General Medicine 04/20/21
--- OUTSIDE RECORDS SUMMARY | 2024-09-21 10:25 | XMS_ITS | Encounter Summary ---
Author Organization [facility] Address [address] [place] [address] Care Team Providers Care Customer Operations Specialist Name Role Phone Pcp, No Primary Care Provider Unavailabl e Encounter Details Date Type Department Care Team (Late st Contact Info) Description 06/28/2021 Erroneous Encounter [facility] DEPT [address] [place] [address] Provider, MD Nicolette Social History Tobacco Use Types Packs/Day Years Used Date Smoking Tobacco: Never Smokeless Tobacco: Never Sex and Gender Information Value Date Recorded Sex Assigned at Not on file Gender Identity Not on file Sexual Orientation Not on file documented as of this encounter Plan of Treatment Not on file documented as of this encounter Visit Diagnoses Not on filedocumented in this encounter Care Teams Customer Operations Specialist Relationship Specialty Start Date End Date Pcp, Antonella PCP - General General Medicine 04/20/21 documented as of this encounter
--- OUTSIDE RECORDS SUMMARY | 2024-09-21 10:26 | XMS_ITS | Clinical Summary ---
Author Organization [facility] [address] [facility] Address [address] [place] [address] Phone Care Team Providers Care Boat Master Name Role Phone Haylie Hensley MD Primary Care Provider Allergies No known active allergies Medications zolpidem CR (AMBIEN CR) 12.5 mg CR tablet Take 1 tablet (12.5 mg total) by mouth at bedtime as needed. for insomnia 4 Active pantoprazole (PROTONIX) 40 mg EC tablet Take 1 tablet (40 mg total) by mouth 2 (two) times a day. 3 Active omeprazole (PriLOSEC) [address] capsule Take 1 capsule (40 mg total) by mouth. Active losartan (COZAAR) 100 mg tablet TAKE 1 TABLET DAILY *LUPIN* Active cholecalciferol (VITAMIN D-3) 25 mcg (1,000 unit) capsule Take 25 mcg by mouth. Active carvediloL (COREG) 12.5 mg tablet Take 1 tablet (12.5 mg total) by mouth 2 (two) times a day. Active aspirin 81 mg chewable tablet Chew 1 tablet (81 mg total). Active dicyclomine (BENTYL) 20 mg tabletIndication s:Irritable bowel syndrome, unspecified type Take 1 tablet (20 mg total) by mouth 2 (two) times a day. 180 each 3 5 08/18/19 26 Active loperamide (IMODIUM) 2 mg capsuleIndicatio ns:Diarrhea, unspecified type Take 2 capsules (4 mg total) by mouth 2 (two) times a day. 360 each 3 5 09/22/19 26 Active loperamide (IMODIUM) 2 mg capsule Take 2 capsules (4 mg total) by mouth 2 (two) times a day. 4 09/22/19 25 Discontinu ed(Reorder ) Encounters Date Type Department Care Team Description 09/21/2024 Telephone Gastroenterology - [address] [place] [address] Suzy Foster MD from Last 3 Months Surgical History Surgery Date Site/Laterality Comments SLEEVE GASTROPLASTY 05/28/2023 Dr. Gardner COLONOSCOPY 08/09/2023 tics, hemorrhoids COLONOSCOPY W/ BIOPSIES 11/19/2017 nl bx, tics, hemorrhoids LAPAROSCOPIC GASTRIC BANDING CHOLECYSTECTOMY 06/10/2011 - 06/09/2012 with bile leak and ERCP COLONOSCOPY 05/23/2009 tics, hemorrhoids TOTAL KNEE ARTHROPLASTY 06/10/2016 - 06/09/2017 Bilateral Medical History Medical History Date Comments Diverticulitis 04/27/2023 Diverticulitis 07/09/2023 Irritable bowel syndrome with diarrhea GERD (gastroesophageal reflux disease) HTN (hypertension) Social History Tobacco Use Types Packs/Day Years Used Date Smoking Tobacco: Never Smokeless Tobacco: Never Tobacco Cessation:Counseling Given: Not Answered Alcohol Use Standard Drinks/Week Comments Never 0 (1 standard drink = 0.6 oz pur e alcohol) Comments Unknown Sex and Gender Information Value Date Recorded Sex Assigned at Not on file Legal Sex Female 7:06 AM EST Gender Identity Not on file Sexual Orientation Not on file Obstetrics History Last Filed Vital Signs Vital Sign Reading Time Taken Comments Blood Pressure - - Pulse - - Temperature - - Respiratory Rate - - Oxygen Saturation - - Inhaled Oxygen Concentration - - Weight 79.8 kg (176 lb) 05/11/2024 2:17 PM EST Height 157.5 cm (5' 2 ) 05/11/2024 2:17 PM EST Body Mass Index 32.19 05/11/2024 2:17 PM EST Plan of Treatment Health Maintenance Due Date Last Done Comments Breast Cancer Screening 1959 Cervical Cancer Screening: Pap Smear 1980 Pneumococcal Vaccine: 50+ Years (1 of 1 - PCV) 2009 Zoster Vaccines (2 of 2) 08/04/2019 06/09/2019 Colorectal Cancer Screening: Colonoscopy 12/31/2023 Depression Screening 12/31/2023 Hepatitis C Screening 12/31/2023 Osteoporosis Screening (Bone Density Screening) 12/31/2023 Social Influencers of Health Screening 12/31/2023 COVID-19 Vaccine ( season) 2024 02/28/2023, 05/15/2022, 10/22/2021, Additional history exists Falls Risk Assessment 2024 DTaP,Tdap,and Td Vaccines (2 - Td or Tdap) 11/01/2026 11/01/2016 Influenza Vaccine Completed 04/22/2024, , 03/19/2022, Additional history exists RSV Immunization Adult Patients Completed 04/22/2024, 08/17/2023 HIB Vaccines Aged Out No longer eligi ble based on patient's age to complete this topic HPV Vaccines Aged Out No longer eligi ble based on patient's age to complete this topic Hepatitis A Vaccines Aged Out No long er eligible based on patient's age to complete this topic Hepatitis B Vaccines Aged Out No long er eligible based on patient's age to complete this topic IPV Vaccines Aged Out No longer eligi ble based on patient's age to complete this topic MMR Vaccines Aged Out No longer eligi ble based on patient's age to complete this topic Meningococcal ACWY Vaccine Aged Out N o longer eligible based on patient's age to complete this topic Meningococcal B Vaccine Aged Out No l onger eligible based on patient's age to complete this topic Pneumococcal Vaccine: Pediatrics (0 to 5 Years) and At-Risk Patients (6 to 64 Years) Aged Out No longer eligible based on patient's age to complete this topic RSV Immunization Patients Under 20 months Aged Out No longer eligible based on patient's age to complete this topic Varicella Vaccines Aged Out No longer eligible based on patient's age to complete this topic Insurance MEDICARE [facility] [place] [facility]) Care Teams Boat Master Relationship Specialty Start Date End Date Haylie Hensley MD [address] [place] [address] PCP - General Internal Medicine 04/03/24
--- OUTSIDE RECORDS SUMMARY | 2024-09-21 10:26 | XMS_ITS | Encounter Summary ---
Author Organization [facility] Address [address] [place] [address] Care Team Providers Care Planetarium Sky Show Technician Name Role Phone Haylie Hensley MD Primary Care Provider Encounter Details Date Type Department Care Team (Late st Contact Info) Description 09/21/2024 Telephone Gastroenterology - [address] [id number] Suzy Foster MD [address] [address] Social History Tobacco Use Types Packs/Day Years Used Date Smoking Tobacco: Never Smokeless Tobacco: Never Alcohol Use Standard Drinks/Week Comments Never 0 (1 standard drink = 0.6 oz pur e alcohol) Comments Unknown Sex and Gender Information Value Date Recorded Sex Assigned at Not on file Legal Sex Female 7:06 AM EST Gender Identity Not on file Sexual Orientation Not on file documented as of this encounter Progress Notes * Heather Cameron MA - 09/21/2024 9:05 AM EDT RX SENT TO PHARMACY * Lynne Jackson - 09/21/2024 8:42 AM EDT BILL : 05/11/2024 NOV : none Medication : loperamide Dose : 2mg 30/90 day supply : 90 Prescriber : manan Pharmacy : [facility] Is patient out of medication? : almost Pt is requesting 3 refills PLEASE NOTE MED REFILLS CAN TAKE UP TO 72 HOURS TO FILL documented in this encounter Plan of Treatment Not on file documented as of this encounter Visit Diagnoses Not on filedocumented in this encounter Care Teams Planetarium Sky Show Technician Relationship Specialty Start Date End Date Haylie Hensley MD [address] [place] [address] PCP - General Internal Medicine 04/03/24 documented as of this encounter
--- OUTSIDE RECORDS SUMMARY | 2024-09-21 10:26 | XMS_ITS ---
Author Name [facility] Organization Unknown Encounters Encounter Type Encounter Reason Primary Diagnosis Location Date Ambulatory Pain in left finger(s) [employer] 04/20/2021 Care Team Organization Name Specialty Phone Email Start Date End [facility] te [place] [facility] PCP,No Primary Care 04/20/2021 01/27/2024 [place] [facility] NO PCP Primary Care 04/20/2021 04/20/2021
[2024-09-21 10:35] VITALS: BP 122/70; PULSE 56; RESP 17; TEMP 36.7; O2SAT 96; BMI 32.9
== END 2024-09-21 11:20 | disposition home or self-care (01) ==
LOC: HO.HMCC 09:25
PROVIDERS: PCP Internal Medicine; Visit Provider Internal Medicine
DX: Z00.01 Encounter for general adult medical examination with abnormal findings (principal); F51.04 Psychophysiologic insomnia; I10 Essential (primary) hypertension; M85.89 Other specified disorders of bone density and structure, multiple sites; R73.01 Impaired fasting glucose; E78.5 Hyperlipidemia, unspecified

== ENCOUNTER → 2024-09-21 09:24 | Outpatient (BNVA) | payer BC, SELFPAY | PROVIDERS: PCP Internal Medicine; Visit Provider Internal Medicine | DX: Z00.01 Encounter for general adult medical examination with abnormal findings (principal); F51.04 Psychophysiologic insomnia; I10 Essential (primary) hypertension; M85.89 Other specified disorders of bone density and structure, multiple sites; R73.01 Impaired fasting glucose; E78.5 Hyperlipidemia, unspecified; Z79.899 Other long term (current) drug therapy | CPT/HCPCS: 96127 ==

== ENCOUNTER 2025-04-07 13:02 | Outpatient (REF) | payer BC, SELFPAY ==
[2025-04-07 15:56] LABS: MANUAL DIFF FLAG NO
[2025-04-07 16:02] LABS: Hematocrit 33.3 % (37.0-47.0); Hemoglobin 10.2 g/dl (12.0-16.0); Imm Gran Abs Auto 0.03 X10*3/uL (0.00-0.03); Imm Gran Pct Auto 0.4 % (0.0-0.4); Lymphocytes Absolute Auto 1.2 X10*3/uL (1.2-4.9); Mean Corpuscular HGB Conc 30.6 g/dl (31.0-35.0); Mean Corpuscular Hemoglobin 27.3 pg (27.0-33.0); Mean Corpuscular Volume 89.0 fL (80.0-98.0); NRBC Abs Auto 0.000 X10*3/uL (0.0-0.012); NRBC Pct Auto 0.0 /100WBC (0.0-0.2); Platelet Count 353 X10*3/uL (160-400); Red Blood Count 3.74 X10*6/uL (4.20-5.50); White Blood Count 7.6 X10*3/uL (4.8-10.8)
[2025-04-07 16:10] LABS: Appearance Urine Turbid; Glucose Urine UA Negative (Negative); PH 5.5 (5.0-9.0); Specific Gravity - Urine 1.015 (1.005-1.025); UMIC TRIGGER UA YES
[2025-04-07 16:28] LABS: Alanine Aminotransferase 21 U/L (0-31); Albumin Level 3.7 g/dL (3.5-5.0); Alkaline Phosphatase 142 U/L (39-117); Anion Gap 14 (12-20); Aspartate Amino Transferase 24 U/L (5-31); Blood Urea Nitrogen 21 mg/dL (9-16); Calcium 9.4 mg/dL (8.4-10.2); Carbon Dioxide 25 mmol/L (22-29); Chloride 103 mmol/L (96-108); Cholesterol 182 mg/dL (<200); Estimated Glomerular Filt Rate 30; HDL Cholesterol 27 mg/dL (>40); Iron 22 mcg/dL (30-160); Magnesium 2.6 mg/dL (1.6-2.6); Percent Iron Saturation 13 % (15-50); Potassium 5.0 mmol/L (3.3-5.1); Sodium 137 mmol/L (135-145); Total Iron Binding Capacity 168 mcg/dL (228-428); Total Protein 7.4 g/dL (6.5-8.0); Triglycerides 167 mg/dL (<150); Unsaturated Iron Binding 146 ug/dL
[2025-04-07 16:36] LABS: Ferritin 1335 ng/mL (10-250)
[2025-04-07 16:48] LABS: Folate 14.3 ng/mL (> or = 4.0); Vitamin B12 1338 pg/mL (200-900)
--- OUTSIDE RECORDS SUMMARY | 2025-04-07 17:52 | XMS_ITS | Encounter Summary ---
Author Organization [facility] Address [address] [place] [address] Care Team Providers Care Liability Claims Manager Name Role Phone Pcp, No Primary Care Provider Unavailabl e Encounter Details Date Type Department Care Team (Late st Contact Info) Description 06/28/2021 Erroneous Encounter [facility] CON[facility] DEPT [address] [place] [id number] Provider, MD Nicolette Social History Tobacco Use Types Packs/Day Years Used Date Smoking Tobacco: Never Smokeless Tobacco: Never Comments Unknown Sex and Gender Information Value Date Recorded Sex Assigned at Not on file Legal Sex Female 5:16 PM EDT Gender Identity Not on file Sexual Orientation Not on file documented as of this encounter Plan of Treatment Not on file documented as of this encounter Visit Diagnoses Not on filedocumented in this encounter Care Teams Liability Claims Manager Relationship Specialty Start Date End Date Pcp, No PCP - General General Medicine 04/20/21 documented as of this encounter
--- OUTSIDE RECORDS SUMMARY | 2025-04-07 17:52 | XMS_ITS | Clinical Summary ---
Author Organization [facility] Address [address] [place] [address] Care Team Providers Care Customer Service Associate Name Role Phone Pcp, No Primary Care Provider Unavailabl e Allergies No known active allergies Medications carvedilol (COREG) 12.5 MG tablet 02/21/2021 Active eszopiclone (LUNESTA) 2 MG tablet Take 2 mg by mouth nightly as needed. as needed for insomnia 01/18/2021 Active losartan (COZAAR) 100 MG tablet 02/21/2021 Active zolpidem (AMBIEN CR) 12.5 MG CR tablet Take 12.5 mg by mouth nightly as needed. as needed for insomnia 04/15/2021 Active Active Problems No known active problems Immunizations Immunization Administration Dates Next Due Influenza Inactivated/Split Preservative [...] 64 04/20/2021 11:41 AM EST Temperature 36.8 C (98.2 F) 04/20/2021 11:41 AM EST Respiratory Rate - - Oxygen Saturation 98% 04/20/2021 11:41 AM EST Inhaled Oxygen Concentration - - Weight 93 kg (205 lb) 04/20/2021 11:41 AM EST Height - - Body Mass Index - - Plan of Treatment Health Maintenance Due Date Last Done Comments Advance Care Planning 1960 Hepatitis C Virus Screening 1960 DTaP/Tdap/Td Vaccines (1 - Tdap) 1978 Mammogram 1999 Colonoscopy 2004 Pneumococcal Vaccines 50+ (1 of 1 - PCV) 2009 Zoster (Shingles) Vaccine (1 of 2) 2009 DXA Bone Density (Females,Ag es 65 and older) 2024 Influenza Vaccine 01/08/2025 02/10/2010 COVID-19 Vaccine (1 - 2023-2 5 season) 2025 RSV Vaccine 50 years and old er and Patients (1 - 1-dose 75+ series) 2034 Hepatitis B Vaccines Aged Out No long er eligible based on patient's age to complete this topic Insurance [employer] Care Teams Customer Service Associate Relationship Specialty Start Date End Date Pcp, No PCP - General General Medicine 04/20/21
== END 2025-04-07 13:03 | disposition home or self-care (01) ==
LOC: HO.HMGCLDS 13:02
PROVIDERS: PCP Internal Medicine; Visit Provider Internal Medicine
DX: I10 Essential (primary) hypertension (principal); R73.01 Impaired fasting glucose; E66.9 Obesity, unspecified; R31.29 Other microscopic hematuria; E78.5 Hyperlipidemia, unspecified; M85.89 Other specified disorders of bone density and structure, multiple sites; R06.09 Other forms of dyspnea; R53.83 Other fatigue; R10.31 Right lower quadrant pain; R53.82 Chronic fatigue, unspecified; R30.0 Dysuria; Z68.30 Body mass index [BMI] 30.0-30.9, adult; Z56.6 Other physical and mental strain related to work; Z78.0 Asymptomatic menopausal state
CPT/HCPCS: 36415; 80053; 80061; 81001; 81003; 82306; 82607; 82728; 82746; 83036; 83540; 83735; 84443; 85025; 88112

== ENCOUNTER 2025-04-07 13:02 | Outpatient (AMB) | payer BC, SELFPAY ==
[2025-04-07 13:16] VITALS: BP 122/70; PULSE 51; RESP 16; TEMP 36.6; O2SAT 93; BMI 30.1
--- NOTE | 2025-04-07 13:16 | MHC.PC.OV ---
Vital Signs 04/07/25 13:16 Height 5 ft 2 in Weight 164 lb 8 oz BMI 30.1 BP 122/70 Blood Pressure Location Lt brachial Position Sitting Respiration 16 Pulse 51 Pulse Source Pulse Oximeter Temp 97.9 F Temp Source Oral Pulse Oximetry (%) 93 Oxygen Delivery Method Room Air Intake Visit Reasons: tired/weak, r side pain Allergies No Known Allergies Allergy (Verified 04/07/25 13:57) Medication List - Last Reconciled 04/07/25 by Haylie Hensley MD [id number] 50-300-40 mg 1 cap PO .bid PRN carvedilol 12.5 mg PO BID 90 days cholecalciferol (vitamin D3) 50 mcg PO DAILY dicyclomine 20 mg PO BID losartan 100 mg PO DAILY zolpidem ER 12.5 mg PO BEDTIME PRN Tobacco use date assessed: 09/21/24 Dental Screening Dental Screen Date: 09/21/24 HPI tired/weak, r side pain HPI Details 65-year-old female presenting today accompanied by partner complaining of fatigue, right lower abdominal pain present now for the last 3 months and getting worse. She has also been experiencing burning pain on urination and occasional blood in urine, not accompanied by urinary frequency, which has been present now for the last days . As per her partner, appetite has been poor, hardly eats, has lost approximately 16 lb in the 6 months. Her fatigue is severe enough that she needs to take several naps daily, which is abnormal for her, and she states that every activity requires effort. Associated symptoms include feeling very cold, dyspnea on exertion when climbing stairs. She states that she has been under significant stress for the past three months due to work and a kitchen renovation, which was just completed yesterday. Past medical history is notable for a cholecystectomy. She denies any history of kidney stones. Her last CBC, performed in December of the prior year, was normal, and other labs at that time were largely unremarkable, with only a slightly elevated blood sugar and a slightly elevated ALP. [facility] Medical History Dyspnea on exertion Fatigue Dyslipidemia Osteopenia of multiple sites Peroneal neuropathy Hyperesthesia Tinnitus, bilateral Numbness of right foot Obesity (BMI 30-39.9) Chronic insomnia Facial lesion Lesion of skin of scalp Menopause Osteoarthritis, knee Impaired fasting glucose GERD (gastroesophageal reflux disease) Anxiety Essential hypertension Insomnia Tension-type headache Surgical History History of ERCP Hx laparoscopic cholecystectomy History of total knee arthroplasty S/P bilateral breast reduction Family History Father CVA (cerebral vascular accident) CAD (coronary artery disease) Mother HTN (hypertension) Lung cancer Breast CA Sister Alcoholism Parkinson disease Substance abuse Social History Housing: House Alcohol intake: current Alcohol intake frequency: a few times a month Patient Tobacco Use Status: Never used Tobacco e-Cigarette/Vaping Use: Never Used Second Hand Smoke Exposure: No service: No Current occupational status: employed Cognitive needs: No Hearing needs: No Vision needs: No Questionnaire Thrive Questionnaire Date Thrive assessed: 07/02/24 I am a: Patient What is your living situation today?: I have a steady place to live Within the past 12 months, did the food you bought not last and you didn't have the money to get more?: Never true Within the past 12 months, did you worry whether your food would run out before you got money to buy more?: Never true Do you have trouble paying for medicines?: No Do you have trouble getting transportation to medical appointments?: No Do you have trouble paying your heating and electricity bill?: No Do you have trouble taking care of your child, family member or friend?: No Do you have trouble with day-to-day activities such as bathing, preparing meals, shopping, managing finances, etc.?: No Are you currently unemployed and looking for a job?: No Are you interested in more education?: No Please select the resources that you would like help with: None Currently or been in a relationship where the following occur: No concerns reported THRIVE Score: 0 RAMONA-7 AMB Questionnaire RAMONA-7 Date RAMONA - 7 assessed: 07/02/24 Source: Developed by Drs. Tanner Woods, Renate Lloyd, Jasvir Galvan and colleagues, with an educational jennifer from [employer]. Review of Systems Const All systems reviewed & are unremarkable except as noted in HPI and below Denies fever(s) and Denies frequent falls ENT Denies vertigo and Denies dizziness Card Denies chest pain at rest and Denies chest pain with activity Resp Denies cough and Denies wheezing GI Denies abdominal pain, Denies melena, Denies hematochezia, Denies constipation and Denies diarrhea Reports as per HPI Musc Reports arthralgias (knee), Denies joint swelling and Reports stiffness Skin/Breast Denies lesions Neuro Denies vertigo, Denies dizziness and Denies frequent falls Psych Reports no additional complaints Endo Reports no additional complaints Joce/Lymph Reports no additional complaints Aller/Immun Reports no additional complaints and Denies wheezing Physical exam (Primary Care) Vital Signs: Last Vital Signs Temp 97.9 F 04/07/25 13:16 Pulse 51 04/07/25 13:16 Resp 16 04/07/25 13:16 BP 122/70 04/07/25 13:16 Pulse Ox 93 04/07/25 13:16 Oxygen Delivery Method Room Air 04/07/25 13:16 BMI result Body Mass Index 30.1 Tobacco/Smoking Status: Tobacco use Status Tobacco use date assessed 09/21/24 04/07/25 13:26 Patient Tobacco Use Status Never used Tobacco 04/07/25 13:26 e-Cigarette/Vaping Use Never Used 04/07/25 13:26 Thrive Assessment: Date of Thrive Assessment Date Thrive assessed 07/02/24 04/07/25 13:26 Currently or been in a relationship where the following occur: No concerns reported Const General: comfortable and no acute distress Orientation/consciousness: patient oriented x3 HENMT Ears: external ears normal General nose exam: Normal external nose present Face and sinus: Yes face symmetric Mouth: moist mucous membranes Eyes Other: Pale palpebral conjunctiva , anicteric, EOM: EOMs intact bilaterally Neck Neck: Yes full ROM, Yes no lymphadenopathy and Yes supple Resp Auscultation: clear to auscultation bilaterally Cardio Rate: regular rate Rhythm: regular rhythm Heart sounds: S1 normal heart sound present and S2 normal heart sound present GI Palpation (GI): Soft to palpation, Tenderness to palpation present (GI) in the RLQ; with no rebound tenderness and Rovsing's sign negative, no guarding and no masses Auscultation: normal bowel sounds General: Yes no CVA tenderness and Yes deferred Back/Spine/Pelvis Back: no CVA tenderness and No back tenderness Skin General skin exam: no rashes or lesions noted Neuro General: patient oriented x3, gait normal, tone normal, moves all extremities, no focal motor deficits and CN's II-XI intact bilaterally Extrem General: Yes full ROM, Yes no joint enlargement, Yes no clubbing, cyanosis or edema and Yes normal gait Psych Appearance: grossly normal and well kempt Mental Status: mental status grossly normal Speech and movement: Normal speech and movement present Affect: normal affect Coding Level of Care Code Est Pt Level 4 (42722) Diagnoses Chronic fatigue R53.82 Fatigue type: chronic, unspecified Essential hypertension I10 Dyslipidemia E78.5 Dysuria R30.0 Assessment & Plan Assessment & Plan (1) Fatigue: Code(s): R53.83 - Other fatigue Category: Medical Qualifiers: Fatigue type: chronic, unspecified Qualified Code(s): R53.82 - Chronic fatigue, unspecified Plan: Ordered complete blood count, ferritin, iron profile, vitamin B12 vitamin-D level, TSH with reflex free T4 and comprehensive metabolic panel. (2) Essential hypertension: Code(s): I10 - Essential (primary) hypertension Category: Medical Plan: Blood pressure at goal of less than 130/80. Continue losartan 100 mg daily and carvedilol 12.5 mg twice a day. Reinforced importance of following a low sodium diet, getting regular exercise, and lowering stress levels. (3) Dyslipidemia: Code(s): E78.5 - Hyperlipidemia, unspecified Category: Medical Plan: Fasting lipid panel ordered, continue with adherence to healthy eating habits, (4) Dysuria: Code(s): R30.0 - Dysuria Plan: Urinalysis with reflex microscopic exam ordered as well as urine cytology Orders: Orders Vitamin B12 and Folate Today E78.5 - Hyperlipidemia, unspecified, I10 - Essential (primary) hypertension, M85.89 - Other specified disorders of bone density and structure, multiple sites, R06.09 - Other forms of dyspnea, R53.83 - Other fatigue TSH reflex Free T4 Today E78.5 - Hyperlipidemia, unspecified, I10 - Essential (primary) hypertension, M85.89 - Other specified disorders of bone density and structure, multiple sites, R06.09 - Other forms of dyspnea, R53.83 - Other fatigue UA and rflx microscopic Today R30.0 - Dysuria Urine Cytology Today R31.29 - Other microscopic hematuria Complete Blood Count Auto Diff Today E78.5 - Hyperlipidemia, unspecified, I10 - Essential (primary) hypertension, M85.89 - Other specified disorders of bone density and structure, multiple sites, R06.09 - Other forms of dyspnea, R53.83 - Other fatigue Comprehensive [place]. Panel Fast Today E78.5 - Hyperlipidemia, unspecified, I10 - Essential (primary) hypertension, M85.89 - Other specified disorders of bone density and structure, multiple sites, R06.09 - Other forms of dyspnea, R53.83 - Other fatigue Ferritin Today E78.5 - Hyperlipidemia, unspecified, I10 - Essential (primary) hypertension, M85.89 - Other specified disorders of bone density and structure, multiple sites, R06.09 - Other forms of dyspnea, R53.83 - Other fatigue IRON PROFILE Today E78.5 - Hyperlipidemia, unspecified, I10 - Essential (primary) hypertension, M85.89 - Other specified disorders of bone density and structure, multiple sites, R06.09 - Other forms of dyspnea, R53.83 - Other fatigue Vitamin D 25-OH Total Today E78.5 - Hyperlipidemia, unspecified, I10 - Essential (primary) hypertension, M85.89 - Other specified disorders of bone density and structure, multiple sites, R06.09 - Other forms of dyspnea, R53.83 - Other fatigue
--- OUTSIDE RECORDS SUMMARY | 2025-04-07 16:32 | XMS_ITS ---
Author Name [facility] Organization Unknown Encounters Encounter Type Encounter Reason Primary Diagnosis Location Date Ambulatory Pain in left finger(s) Spare to Share 04/20/2021 Care Team Organization Name Specialty Phone Email Start Date End Da te Spare to Share PCP,No Primary Care 04/20/2021 01/27/2024 Spare to Share NO PCP Primary Care 04/20/2021 04/20/2021
--- OUTSIDE RECORDS SUMMARY | 2025-04-07 16:32 | XMS_ITS | Clinical Summary ---
Author Organization [facility] Address [address] [place] [address] Care Team Providers Care Blade Groover Name Role Phone Unavailable Primary Care Provider [...]
--- OUTSIDE RECORDS SUMMARY | 2025-04-07 16:32 | XMS_ITS | Clinical Summary ---
Author Organization [facility] [address] [facility] Address [address] [place] [address] Phone Care Team Providers Care Control Clerk Head Name Role Phone Haylie Hensley MD Primary Care Provider Allergies No known active allergies Medications zolpidem CR (AMBIEN CR) 12.5 mg CR tablet Take 1 tablet (12.5 mg total) by mouth at bedtime as needed. for insomnia 4 Active losartan (COZAAR) 100 mg tablet TAKE 1 TABLET DAILY *LUPIN* Active cholecalciferol (VITAMIN D-3) 25 mcg (1,000 unit) capsule Take 25 mcg by mouth. Active carvediloL (COREG) 12.5 mg tablet Take 1 tablet (12.5 mg total) by mouth 2 (two) times a day. Active aspirin 81 mg chewable tablet Chew 1 tablet (81 mg total). Active loperamide (IMODIUM) 2 mg capsuleIndicatio ns:Diarrhea, unspecified type Take 2 capsules (4 mg total) by mouth 2 (two) times a day. 360 each 3 5 09/22/19 26 Active omeprazole (PriLOSEC) [address] capsuleIndicatio ns:Gastroesophag eal reflux disease, unspecified whether esophagitis present Take 1 capsule (40 mg total) by mouth 2 (two) times a day. 180 each 3 5 03/26/20 26 Active dicyclomine (BENTYL) 20 mg tabletIndication s:Irritable bowel syndrome, unspecified type Take 1 tablet (20 mg total) by mouth 2 (two) times a day. 180 each 3 5 03/26/20 26 Active pantoprazole (PROTONIX) 40 mg EC tablet Take 1 tablet (40 mg total) by mouth 2 (two) times a day. 3 03/26/20 25 Discontinu ed(Ineffec tive) dicyclomine (BENTYL) 20 mg tabletIndication s:Irritable bowel syndrome, unspecified type TAKE 1 TABLET BY MOUTH TWICE DAILY 60 tablet 7 5 03/26/20 25 Discontinu ed(Reorder ) omeprazole (PriLOSEC) [address] capsule Take 1 capsule (40 mg total) by mouth 2 (two) times a day. 180 capsule 1 5 03/26/20 Discontinu ed(Reorder ) Encounters Date Type Department Care Team Description 03/26/2025 8:50 AM EDT Office Visit Gastroenterology - [address] [place] [id number] Mellisa Canada PA Gastroesophageal reflux disease, unspecified whether esophagitis present (Primary Dx); Irritable bowel syndrome, unspecified type from Last 3 Months Surgical History Surgery [...] Not Answered Alcohol Use Standard Drinks/Week Comments Yes 1 (1 standard drink = 0.6 oz pur [...] - Inhaled Oxygen Concentration - - Weight 77.8 kg (171 lb 9.6 oz) 03/26/2025 8:30 A M EDT Height 157.5 cm (5' 2 ) 03/26/2025 8:30 AM EDT Body Mass Index 31.39 03/26/2025 8:30 AM EDT Plan of Treatment Health Maintenance Due Date Last Done Comments Breast Cancer Screening 1960 Colorectal Cancer Screening: Colonoscopy 1960 Zoster Vaccines (2 of 2) 08/04/2019 06/09/2019 Hepatitis C Screening 12/31/2023 Osteoporosis Screening (Bone Density Screening) 12/31/2023 Social Influencers of Health Screening 12/31/2023 Falls Risk Assessment 2024 Depression Screening 06/10/2024 COVID-19 Vaccine ( season) 2025 07/13/2024, 02/28/2023, 05/15/2022, Additional history exists Influenza Vaccine (#1) 2025 , 02/28/2023, 03/19/2022, Additional history exists DTaP,Tdap,and Td Vaccines (2 - Td or Tdap) 11/01/2026 11/01/2016 RSV Immunization Adult Patients Completed 04/22/2024, 08/17/2023 Pneumococcal Vaccine: 50+ Years Completed 07/13/2024 HIB Vaccines Aged Out No longer eligi [...] age to complete this topic Insurance MEDICARE [facility] ([facility]) Care Teams Control Clerk Head Relationship Specialty Start Date End Date Haylie Hensley MD [address] [place] [address] PCP - General Internal Medicine 04/03/24
== END 2025-04-07 14:18 | disposition home or self-care (01) ==
LOC: HO.HMCC 13:03
PROVIDERS: PCP Internal Medicine; Visit Provider Internal Medicine
DX: R53.82 Chronic fatigue, unspecified (principal); I10 Essential (primary) hypertension; E78.5 Hyperlipidemia, unspecified; R30.0 Dysuria

== ENCOUNTER 2025-04-22 15:56 | Outpatient (AMB) | payer BC, SELFPAY ==
--- NOTE | 2025-04-22 16:03 | HO.NEPHOV_ITS ---
Vital Signs 04/22/25 16:05 Height 5 ft 2 in Weight 171 lb 2 oz BMI 31.3 BP 154/80 H Blood Pressure Location Lt brachial Position Sitting Pulse 55 Pulse Source Pulse Oximeter Pulse Oximetry (%) 96 Oxygen Delivery Method Room Air Intake Visit Reasons: INT: Stat ref. Abn results of kidney func. Relocation Coordinator Required: No Accompanied by: Self / Same As Patient Allergies No Known Allergies Allergy (Verified 04/22/25 16:05) HPI Comments Details: I had the privilege of seeing Reta in consultation for MARGARET on a backdrop of hypertension among other comorbidities. She is 65 years of age and has been in good health until recently when she developed lower abdominal pain with poor appetite and energy and a feeling of being unwell. She was seen by her PCP at that time who found her to have RBCs in the urine and diagnosed with lower urinary tract infection and was prescribed Macrobid. Blood work was done at that time showed MARGARET. Her urine output has been good and did not have any gross hematuria. She denied any flank pain, renal calculi, nonsteroidal anti-inflammatory intake, orthostatic symptoms. She has been taking losartan when she was on well. She denied any shortness of breath, chest pain, paroxysmal nocturnal dyspnea, orthopnea, hemoptysis, sinusitis, edema. Currently she feels improved. [facility] Medical History (Updated 04/22/25 @ 16:07 by Omer Hays MD) Hematuria Decreased calculated glomerular filtration rate (GFR) Dyspnea on exertion Fatigue Dyslipidemia Osteopenia of multiple sites Peroneal neuropathy Hyperesthesia Tinnitus, bilateral Numbness of right foot Obesity (BMI 30-39.9) Chronic insomnia Facial lesion Lesion of skin of scalp Menopause Osteoarthritis, knee Impaired fasting glucose GERD (gastroesophageal reflux disease) Anxiety Essential hypertension Insomnia Tension-type headache Surgical History History of ERCP Hx laparoscopic cholecystectomy History of total knee arthroplasty S/P bilateral breast reduction Family History Father CVA (cerebral vascular accident) CAD (coronary artery disease) Mother HTN (hypertension) Lung cancer Breast CA Sister Alcoholism Parkinson disease Substance abuse Social History Housing: House Alcohol intake: current Alcohol intake frequency: a few times a month Patient Tobacco Use Status: Never used Tobacco e-Cigarette/Vaping Use: Never Used Second Hand Smoke Exposure: No service: No Current occupational status: employed Cognitive needs: No Hearing needs: No Vision needs: No Review of Systems Const All systems reviewed & are unremarkable except as noted in HPI and below Physical Exam Vital Signs: Last Vital Signs Pulse 55 04/22/25 16:05 BP 154/80 H 04/22/25 16:05 Pulse Ox 96 04/22/25 16:05 Oxygen Delivery Method Room Air 04/22/25 16:05 BMI result Body Mass Index 31.3 Const General: comfortable and no acute distress Orientation/consciousness: patient oriented x3 HEENT Head: Yes normocephalic Mouth: Normal oral and palatal mucosa present Eyes EOM: EOMs intact bilaterally Neck Neck: Yes supple Resp Auscultation: clear to auscultation bilaterally Cardio Jugular venous distension: no JVD Rate: regular rate GI Palpation (GI): Soft to palpation Auscultation: normal bowel sounds General: Yes no CVA tenderness Back/Spine/Pelvis Back: no CVA tenderness Skin General skin exam: no rashes or lesions noted Neuro General: patient oriented x3 and moves all extremities Extrem General: Yes no pedal edema Results Reviewed Nephrology Results: Hgb, (12.0-16.0) 10.2 g/dl L 04/07/25 WBC, (4.8-10.8) 7.6 X10*3/uL 04/07/25 Plt Count, (160-400) 353 X10*3/uL Δ 04/07/25 Sodium, (135-145) 137 mmol/L 04/07/25 Potassium, (3.3-5.1) 5.0 mmol/L 04/07/25 Chloride, (96-108) 103 mmol/L 04/07/25 Carbon Dioxide, (22-29) 25 mmol/L 04/07/25 BUN, (9-16) 21 mg/dL H 04/07/25 Creatinine, (0.5-1.4) 1.69 mg/dL H 04/07/25 Calcium, (8.4-10.2) 9.4 mg/dL 04/07/25 Urine Protein, (Neg-Trace) Trace mg/dL 04/07/25 Assessment & Plan Assessment & Plan (1) MARGARET (acute kidney injury): Code(s): N17.9 - Acute kidney failure, unspecified Category: Medical (2) Essential hypertension: Code(s): I10 - Essential (primary) hypertension Category: Medical Plan MARGARET likely was due to tubular injury. She was taking ARB when she was having poor oral intake. Her urine output was good. Has no reason to suspect any obstructive uropathy. Jumana infectious GN as well as RPGN is in the differential. She was encouraged to maintain good hydration and avoid nonsteroidal anti-inflammatories. I ordered imaging studies as well as extensive workup. If her serum creatinine has not settled down, she may need a renal biopsy. All these possibilities have been explained in detail. I did not make any medication changes but rather answered all questions. Follow-up appointment given. Further management is pending evolving data. Orders: Orders Electrolytes Today N17.9 - Acute kidney failure, unspecified Calcium Today N17.9 - Acute kidney failure, unspecified Hepatitis B Core Antibody Today N17.9 - Acute kidney failure, unspecified Proteinase 3 PR3 Antibodies Today N17.9 - Acute kidney failure, unspecified Immunofixation Pnl, Serum Today N17.9 - Acute kidney failure, unspecified Phospholipase A2 Receptor Pnl Today N17.9 - Acute kidney failure, unspecified US renal BI 1 Week N17.9 - Acute kidney failure, unspecified US renal doppler 1 Week N17.9 - Acute kidney failure, unspecified Protein Creatinine Ratio, Ur Today N17.9 - Acute kidney failure, unspecified Immunofixation, Random Urine Today N17.9 - Acute kidney failure, unspecified Blood Urea Nitrogen Today N17.9 - Acute kidney failure, unspecified Creatinine Today N17.9 - Acute kidney failure, unspecified Hepatitis B Surface Antigen Today N17.9 - Acute kidney failure, unspecified Anti DNA DS Antibody Today N17.9 - Acute kidney failure, unspecified Myeloperoxidase Antibody Today N17.9 - Acute kidney failure, unspecified Anti Glomerular Basement Memb Today N17.9 - Acute kidney failure, unspecified Complement C3 Today N17.9 - Acute kidney failure, unspecified Complement C4 Today N17.9 - Acute kidney failure, unspecified UA and rflx microscopic Today N17.9 - Acute kidney failure, unspecified Coding Level of Care Code New Pt Level 4 (52598) Diagnoses MARGARET (acute kidney injury) N17.9 Essential hypertension I10
[2025-04-22 16:05] VITALS: BP 154/80; PULSE 55; O2SAT 96; BMI 31.3
--- OUTSIDE RECORDS SUMMARY | 2025-04-22 18:42 | XMS_ITS | Clinical Summary ---
Author Organization [facility] Address [address] [place] [address] Care Team Providers Care Scroll Shear Operator Name Role Phone Pcp, No Primary Care [...] this topic Insurance [employer] Care Teams Scroll Shear Operator Relationship Specialty Start Date End Date Pcp, No PCP - General General Medicine 04/20/21
--- OUTSIDE RECORDS SUMMARY | 2025-04-22 18:42 | XMS_ITS | Clinical Summary ---
Author Organization [facility] Address [address] [place] [address] Care Team Providers Care Bonding Machine Tender Name Role Phone Unavailable Primary Care Provider [...]
--- OUTSIDE RECORDS SUMMARY | 2025-04-22 18:42 | XMS_ITS | Clinical Summary ---
Author Organization [facility] 299 [facility] Address [address] [place] [address] Phone Care Team Providers Care Lab Aid Name Role Phone Haylie Hensley MD Primary Care Provider [phone] Allergies No known active allergies Medications zolpidem [...] AM EDT Office Visit Gastroenterology - [address] [place] [phone] Mellisa Canada PA Gastroesophageal reflux disease, [...] age to complete this topic Insurance MEDICARE [facility] [place] ([facility]) Care Teams Lab Aid Relationship Specialty Start Date End Date Haylie Hensley MD [address] [place] [address] PCP - General Internal Medicine 04/03/24
== END 2025-04-22 16:39 | disposition home or self-care (01) ==
LOC: HO.HKAS 15:57
PROVIDERS: PCP Internal Medicine; Visit Provider Internal Medicine Nephrology
DX: N17.9 Acute kidney failure, unspecified (principal); I10 Essential (primary) hypertension
CPT/HCPCS: 99204

== ENCOUNTER 2025-05-11 09:19 | Outpatient (AMB) | payer BC, SELFPAY ==
--- NOTE | 2025-05-11 09:35 | MHC.PC.OV ---
Vital Signs 05/11/25 09:36 Height 5 ft 2 in Weight 166 lb BMI 30.4 BP 142/78 H Blood Pressure Location Lt brachial Position Sitting Respiration 16 Pulse 70 Pulse Source Pulse Oximeter Temp 97.8 F Temp Source Oral Pulse Oximetry (%) 97 Oxygen Delivery Method Room Air Intake Visit Reasons: leg weakness Optimization Analyst Required: No Allergies No Known Allergies Allergy (Verified 05/16/25 21:53) Medication List - Last Reconciled 05/16/25 by Haylie Hensley MD [id number] mg 1 cap PO .bid PRN carvedilol 12.5 mg PO BID 90 days cholecalciferol (vitamin D3) 50 mcg PO DAILY dicyclomine 20 mg PO BID ferrous sulfate 325 mg PO DAILY 3 months losartan 100 mg PO DAILY zolpidem ER 12.5 mg PO BEDTIME PRN Tobacco use date assessed: 05/11/25 Fall risk assessment: 1 Fall in past year Last assessed Fall Risk: 05/11/25 Dental Screening Dental Screen Date: 05/11/25 Did you have a dental visit in the last 12 months?: Yes Did you have a dental problem in the last 6 months where you did not have access to dental care?: No Was dental information given to patient?: Patient has dentist HPI leg weakness HPI Details The patient is a 65 year old individual presenting with worsening right leg weakness and pain. The patient reports the symptoms are progressive, now involving weakness from the hip down, which causes difficulty climbing stairs and occasional loss of balance. The patient experiences constant throbbing in the right big toe, which temporarily subsides with pressure, and notes that gabapentin was ineffective. The patient denies any loss of bladder or bowel control. The patient's symptoms began approximately one year ago. A nerve conduction study completed in February of last year revealed a right chronic peroneal neuropathy. Previous physical therapy, which included dry needling and electrical stimulation, provided temporary relief, but the patient was unable to continue after 12 sessions due to insurance limitations. Past surgical history includes an L4-L5 fusion for back pain, which presented with different symptoms than the current issue, and a right knee replacement three years ago. 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 Hematuria Decreased calculated glomerular filtration rate (GFR) Dyspnea on exertion Fatigue Dyslipidemia Osteopenia of multiple sites Peroneal neuropathy Hyperesthesia Tinnitus, bilateral Numbness of right foot Obesity (BMI 30-39.9) Chronic insomnia Facial lesion Lesion of skin of scalp Menopause Osteoarthritis, knee Impaired fasting glucose GERD (gastroesophageal reflux disease) Anxiety Essential hypertension Insomnia Tension-type headache Surgical History History of ERCP Hx laparoscopic cholecystectomy History of total knee arthroplasty S/P bilateral breast reduction Family History Father CVA (cerebral vascular accident) CAD (coronary artery disease) Mother HTN (hypertension) Lung cancer Breast CA Sister Alcoholism Parkinson disease Substance abuse Social History Housing: House Alcohol intake: current Alcohol intake frequency: a few times a month Patient Tobacco Use Status: Never used Tobacco e-Cigarette/Vaping Use: Never Used Second Hand Smoke Exposure: No service: No Current occupational status: employed Cognitive needs: No Hearing needs: No Vision needs: No Questionnaire PHQ-9 Over the last 2 weeks, how often have you been bothered by any of the following problems? 1. Little interest or pleasure in doing things: not at all 2. Feeling down, depressed, or hopeless: not at all 3. Trouble falling or staying asleep, or sleeping too much: not at all 4. Feeling tired or having little energy: not at all 5. Poor appetite or overeating: not at all 6. Feeling bad about yourself - or that you are a failure or have let yourself or your family down: not at all 7. Trouble concentrating on things, such as reading the newspaper or watching television: not at all 8. Moving or speaking so slowly that other people could have noticed. Or the opposite - being so fidgety or restless that you have been moving around a lot more than usual: not at all 9. Thoughts that you would be better off or of hurting yourself in some way: not at all Total score: 0 Depression Screening Interpretation: Negative Depression Screening Done: Yes Source: Developed by Drs. Tanner Woods, Renate B.WJasvir Toribio and colleagues, with an educational jennifer from [employer]. Thrive Questionnaire Date Thrive assessed: 07/02/24 I am a: Patient What is your living situation today?: I have a steady place to live Within the past 12 months, did the food you bought not last and you didn't have the money to get more?: Never true Within the past 12 months, did you worry whether your food would run out before you got money to buy more?: Never true Do you have trouble paying for medicines?: No Do you have trouble getting transportation to medical appointments?: No Do you have trouble paying your heating and electricity bill?: No Do you have trouble taking care of your child, family member or friend?: No Do you have trouble with day-to-day activities such as bathing, preparing meals, shopping, managing finances, etc.?: No Are you currently unemployed and looking for a job?: No Are you interested in more education?: No Please select the resources that you would like help with: None Currently or been in a relationship where the following occur: No concerns reported THRIVE Score: 0 AUDIT C Alcohol Use Questionnaire (AUDIT-C) 1. How often do you have a drink containing alcohol?: 2-4 times a month 2. How many drinks containing alcohol do you have on a typical day when you are drinking?: 1 or 2 3. How often do you have six or more drinks on one occasion?: Never Total Score: 2 RAMONA-7 AMB Questionnaire RAMONA-7 Date RAMONA - 7 assessed: 07/02/24 Feeling nervous, anxious, or on edge: 0 = Not at all Not being able to stop or control worryin = Not at all Worrying too much about different things: 0 = Not at all Trouble relaxin = Not at all Being so restless that it is hard to sit still: 0 = Not at all Becoming easily annoyed or irritable: 0 = Not at all Feeling afraid as if something awful might happen: 0 = Not at all Total RAMONA-7 score (0-4 normal; 5-9 mild; 10-14 moderate; 15-21 severe): 0 Source: Developed by Drs. Tanner Woods, Jasvir Orourke and colleagues, with an educational jennifer from [employer]. Review of Systems Const All systems reviewed & are unremarkable except as noted in HPI and below Physical exam (Primary Care) Vital Signs: Last Vital Signs Temp 97.8 F 05/11/25 09:36 Pulse 70 05/11/25 09:36 Resp 16 05/11/25 09:36 BP 142/78 H 05/11/25 09:36 Pulse Ox 97 05/11/25 09:36 Oxygen Delivery Method Room Air 05/11/25 09:36 BMI result Body Mass Index 30.4 Tobacco/Smoking Status: Tobacco use Status Tobacco use date assessed 05/11/25 05/11/25 09:42 Patient Tobacco Use Status Never used Tobacco 05/11/25 09:36 e-Cigarette/Vaping Use Never Used 05/11/25 09:36 PHQ-9: PHQ-9 Score PHQ-9: Total score 0 05/11/25 10:24 Depression Screening Interpretation: Negative Thrive Assessment: Date of Thrive Assessment Date Thrive assessed 07/02/24 05/11/25 09:36 Currently or been in a relationship where the following occur: No concerns reported Const General: no acute distress Orientation/consciousness: patient oriented x3 Eyes Other: Pale palpebral conjunctiva , anicteric, EOM: EOMs intact bilaterally Neck Neck: Yes full ROM, Yes no lymphadenopathy and Yes supple Resp Auscultation: clear to auscultation bilaterally Cardio Rate: regular rate Rhythm: regular rhythm Heart sounds: S1 normal heart sound present and S2 normal heart sound present GI Palpation (GI): Soft to palpation, no guarding and no masses Auscultation: normal bowel sounds General: Yes no CVA tenderness and Yes deferred Back/Spine/Pelvis Other: - There is no tenderness to palpation of the lumbar spine, buttocks, or hips. - Active right straight leg raise is limited. - Passive straight leg raise is negative for pain bilatera Back: no CVA tenderness and No back tenderness Skin Other: Healed surgical scar is present over the lumbar spine. Neuro Other: - Motor strength is decreased in the right lower extremity compared to the left. - Deep tendon reflexes are 2+ - Sensation to light touch is intact and symmetric in the feet. General: patient oriented x3, gait normal, tone normal, moves all extremities, no focal motor deficits and CN's II-XI intact bilaterally Extrem General: Yes full ROM, Yes no joint enlargement, Yes no clubbing, cyanosis or edema and Yes normal gait Psych Appearance: grossly normal and well kempt Mental Status: mental status grossly normal Speech and movement: Normal speech and movement present Affect: normal affect Coding Level of Care Code Est Pt Level 4 (75328) Diagnoses Weakness of right leg R29.898 Assessment & Plan Assessment & Plan (1) Weakness of right leg: Code(s): R29.898 - Other symptoms and signs involving the musculoskeletal system Plan: 1. Chronic right peroneal neuropathy The patient presents with progressing symptoms of right leg weakness and neuropathic pain consistent with the known diagnosis of chronic right peroneal neuropathy, which was confirmed by a nerve conduction study last year. The etiology remains unclear but may be related to a knee surgery performed three years ago. Lumbar radiculopathy is less likely given the absence of back pain on exam and a negative passive straight leg raise test. The plan is to obtain a stat referral to a new fuller brush worker, Dr. Eddie Daly, for further evaluation and management, as the patient was dissatisfied with previous specialist. The patient will be provided with a copy of the prior nerve conduction study to bring to the appointment. Patient was informed and verbally consented to the use of an ambient scribe for clinic note documentation during this visit. Orders: Referrals Physiatry Referral G57.01 - Lesion of sciatic nerve, right lower limb, R29.898 - Other symptoms and signs involving the musculoskeletal system
[2025-05-11 09:36] VITALS: BP 142/78; PULSE 70; RESP 16; TEMP 36.6; O2SAT 97; BMI 30.4
--- OUTSIDE RECORDS SUMMARY | 2025-05-11 09:56 | XMS_ITS | Clinical Summary ---
Author Organization [facility] Address [address] [place] [address] Care Team Providers Care Boilermaker Pipe Fitter Name Role Phone Pcp, No Primary Care [...] this topic Insurance [employer] Care Teams Boilermaker Pipe Fitter Relationship Specialty Start Date End Date Pcp, No PCP - General General Medicine 04/20/21
--- OUTSIDE RECORDS SUMMARY | 2025-05-11 09:56 | XMS_ITS | Clinical Summary ---
Author Organization [facility] Address [address] [place] [address] Care Team Providers Care Bath Steward/Stewardess Name Role Phone Unavailable Primary Care Provider [...]
--- OUTSIDE RECORDS SUMMARY | 2025-05-11 09:57 | XMS_ITS | Clinical Summary ---
Author Organization [facility] 299 [facility] Address [address] [place] [address] Phone Care Team Providers Care Technical Applications Scientist Name Role Phone Haylie Hensley MD Primary [...] 180 each 3 5 03/26/20 26 Active Encounters Date Type Department Care Team Description 03/26/2025 8:50 AM EDT Office Visit Gastroenterology - [address] [facility] [address] [place] [phone] Mellisa Canada PA Gastroesophageal reflux disease, unspecified [...] age to complete this topic Insurance MEDICARE [facility] [place]) Care Teams Technical Applications Scientist Relationship Specialty Start Date End Date Haylie Hensley MD [address] [place] [address] PCP - General Internal Medicine 04/03/24
== END 2025-05-11 10:28 | disposition home or self-care (01) ==
LOC: HO.HMCC 09:20
PROVIDERS: PCP Internal Medicine; Visit Provider Internal Medicine
DX: R29.898 Other symptoms and signs involving the musculoskeletal system (principal)

== ENCOUNTER 2025-05-20 16:23 | Outpatient (AMB) | payer BC, SELFPAY ==
--- NOTE | 2025-05-20 16:37 | HO.NEPHOV ---
Vital Signs 05/20/25 16:38 Height 5 ft 2 in Weight 166 lb 2 oz BMI 30.4 BP 138/80 Blood Pressure Location Lt brachial Position Sitting Pulse 64 Pulse Source Pulse Oximeter Pulse Oximetry (%) 99 Oxygen Delivery Method Room Air Intake Visit Reasons: 4wk f/u w/labs-LVM Watch Band Assembler Required: No Accompanied by: Self / Same As Patient Allergies No Known Allergies Allergy (Verified 05/20/25 16:38) HPI Comments Details: Reta was seen in follow up for MARGARET on a backdrop of hypertension among other comorbidities. She is 65 years of age and has been in good health until recently when she developed lower abdominal pain with poor appetite and energy and a feeling of being unwell. She was seen by her PCP at that time who found her to have RBCs in the urine and diagnosed with lower urinary tract infection and was prescribed Macrobid. Blood work was done at that time showed MARGARET. Her urine output has been good and did not have any gross hematuria. She denied any flank pain, renal calculi, nonsteroidal anti-inflammatory intake, orthostatic symptoms. She has been taking losartan when she was on well. She denied any shortness of breath, chest pain, paroxysmal nocturnal dyspnea, orthopnea, hemoptysis, sinusitis, edema. Currently she feels improved. 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 Hematuria Decreased calculated glomerular filtration rate (GFR) Dyspnea on exertion Fatigue Dyslipidemia Osteopenia of multiple sites Peroneal neuropathy Hyperesthesia Tinnitus, bilateral Numbness of right foot Obesity (BMI 30-39.9) Chronic insomnia Facial lesion Lesion of skin of scalp Menopause Osteoarthritis, knee Impaired fasting glucose GERD (gastroesophageal reflux disease) Anxiety Essential hypertension Insomnia Tension-type headache Surgical History History of ERCP Hx laparoscopic cholecystectomy History of total knee arthroplasty S/P bilateral breast reduction Family History Father CVA (cerebral vascular accident) CAD (coronary artery disease) Mother HTN (hypertension) Lung cancer Breast CA Sister Alcoholism Parkinson disease Substance abuse Social History Housing: House Alcohol intake: current Alcohol intake frequency: a few times a month Patient Tobacco Use Status: Never used Tobacco e-Cigarette/Vaping Use: Never Used Second Hand Smoke Exposure: No service: No Current occupational status: employed Cognitive needs: No Hearing needs: No Vision needs: No Review of Systems Const All systems reviewed & are unremarkable except as noted in HPI and below Physical Exam Vital Signs: Last Vital Signs Pulse 64 05/20/25 16:38 BP 138/80 05/20/25 16:38 Pulse Ox 99 05/20/25 16:38 Oxygen Delivery Method Room Air 05/20/25 16:38 BMI result Body Mass Index 30.4 Const General: comfortable and no acute distress Orientation/consciousness: patient oriented x3 HEENT Head: Yes normocephalic Mouth: Normal oral and palatal mucosa present Eyes EOM: EOMs intact bilaterally Neck Neck: Yes supple Resp Auscultation: clear to auscultation bilaterally Cardio Jugular venous distension: no JVD Rate: regular rate GI Palpation (GI): Soft to palpation Auscultation: normal bowel sounds General: Yes no CVA tenderness Back/Spine/Pelvis Back: no CVA tenderness Skin General skin exam: no rashes or lesions noted Neuro General: patient oriented x3 and moves all extremities Extrem General: Yes no pedal edema Assessment & Plan Assessment & Plan (1) Essential hypertension: Code(s): I10 - Essential (primary) hypertension Category: Medical (2) MARGARET (acute kidney injury): Code(s): N17.9 - Acute kidney failure, unspecified Category: Medical Plan MARGARET likely was due to tubular injury. She was taking ARB when she was having poor oral intake. Her urine output was good. Has no reason to suspect any obstructive uropathy. Jumana infectious GN as well as RPGN is in the differential. All these have been ruled out by investigations. Her MPO was marginally high above normal. Her renal functions are back to baseline. She was encouraged to maintain good hydration and avoid nonsteroidal anti-inflammatories. I did not make any medication changes and answered all questions. Follow-up appointment given. Orders: Orders Blood Urea Nitrogen 1 Year I10 - Essential (primary) hypertension, N17.9 - Acute kidney failure, unspecified Proteinase 3 PR3 Antibodies 1 Year I10 - Essential (primary) hypertension, N17.9 - Acute kidney failure, unspecified Creatinine 1 Year I10 - Essential (primary) hypertension, N17.9 - Acute kidney failure, unspecified Electrolytes 1 Year I10 - Essential (primary) hypertension, N17.9 - Acute kidney failure, unspecified Myeloperoxidase Antibody 1 Year I10 - Essential (primary) hypertension, N17.9 - Acute kidney failure, unspecified UA and rflx microscopic 1 Year I10 - Essential (primary) hypertension, N17.9 - Acute kidney failure, unspecified Coding Level of Care Code Est Pt Level 4 (79023) Diagnoses Essential hypertension I10 MARGARET (acute kidney injury) N17.9
[2025-05-20 16:38] VITALS: BP 138/80; PULSE 64; O2SAT 99; BMI 30.4
--- OUTSIDE RECORDS SUMMARY | 2025-05-20 23:19 | XMS_ITS | Clinical Summary ---
Author Organization [facility] Address [address] [place] [address] Care Team Providers Care Stone Gluer Name Role Phone Pcp, No Primary Care [...] this topic Insurance [employer] Care Teams Stone Gluer Relationship Specialty Start Date End Date Pcp, No PCP - General General Medicine 04/20/21
--- OUTSIDE RECORDS SUMMARY | 2025-05-20 23:19 | XMS_ITS | Clinical Summary ---
Author Organization [facility] Prior to 11/07/[address] [place] [id number] Care Team Providers Care Farmworker Chicken Farm Name Role Phone Unavailable Primary Care Provider [...]
--- OUTSIDE RECORDS SUMMARY | 2025-05-20 23:19 | XMS_ITS | Clinical Summary ---
Author Organization [facility] 299 [facility] Address [address] [place] [address] Phone Care Team Providers Care Burglar Alarm Inspector Name Role Phone Haylie Hensley MD Primary [...] Office Visit Gastroenterology - [address] [facility] [address] [place] [address] Mellisa Canada PA Gastroesophageal reflux disease, unspecified [...] Screening 1960 Colorectal Cancer Screening: Colonoscopy 1960 Drug Screen 1959 Non-Opioid Controlled Substance Agreement 1959 Zoster Vaccines (2 of 2) 08/04/2019 [...] age to complete this topic Insurance MEDICARE [facility] [place] Care Teams Burglar Alarm Inspector Relationship Specialty Start Date End Date Haylie Hensley MD [address] [place] [address] PCP - General Internal Medicine 04/03/24
== END 2025-05-20 16:50 | disposition home or self-care (01) ==
LOC: HO.HKAS 16:24
PROVIDERS: PCP Internal Medicine; Visit Provider Internal Medicine Nephrology
DX: I10 Essential (primary) hypertension (principal); N17.9 Acute kidney failure, unspecified
CPT/HCPCS: 99214

== ENCOUNTER 2025-05-27 11:25 | Outpatient (AMB) | payer BC, SELFPAY ==
[2025-05-27 11:35] VITALS: BMI 30.2
--- NOTE | 2025-05-27 11:35 | A.PHYSOV ---
Vital Signs 05/27/25 11:35 Height 5 ft 2 in Weight 165 lb BMI 30.2 Intake Visit Reasons: [facility] [place]LE Intake Note: Patient is a 65 year old female here for initial office visit. Patient has been referred for low back pain with right sided sciatica. 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 The pain is associated with burning, tingling, and numbness, and tenderness to touch. (ID: 0, 1, 2, 24). The pain was occurring daily but has improved to 2-3 times per week with acupuncture from a physical therapist. She has a history of L4-L5 surgery approximately 20 years ago, which caused some initial numbness that eventually resolved. She has also undergone surgery on both knees and feels the current symptoms may be related to her knee. An EMG confirmed peroneal nerve damage. She was prescribed gabapentin 300 mg by her primary care provider, Dr. Christianson, which provided no relief. The patient denies any current back pain. She has not had any X-rays of her foot. She also has a history of hypertension and claustrophobia. I reviewed the referring provider's no prior consultation. Pain Description - Onset and Timing: The pain used to be a daily occurrence but now happens 2-3 days per week; the last episode was yesterday. - Quality and Character: The patient describes the pain as excruciating, burning, and tingling, with associated numbness. - Location: The pain is located in the right great toe, affecting the top of the toe. - Radiation: The pain can travel down the leg. - Exacerbating Factors: The toe is very sensitive to touch, to the point that blankets cannot touch it. - Relieving Factors: Acupuncture has reduced the frequency of the pain. - Associated Symptoms: The toe can get very cold. Results - EMG: Previously completed EMG showed peroneal nerve damage. 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 Hematuria Decreased calculated glomerular filtration rate (GFR) Dyspnea on exertion Fatigue Dyslipidemia Osteopenia of multiple sites Peroneal neuropathy Hyperesthesia Tinnitus, bilateral Numbness of right foot Obesity (BMI 30-39.9) Chronic insomnia Facial lesion Lesion of skin of scalp Menopause Osteoarthritis, knee Impaired fasting glucose GERD (gastroesophageal reflux disease) Anxiety Essential hypertension Insomnia Tension-type headache Surgical History History of ERCP Hx laparoscopic cholecystectomy History of total knee arthroplasty S/P bilateral breast reduction Family History Father CVA (cerebral vascular accident) CAD (coronary artery disease) Mother HTN (hypertension) Lung cancer Breast CA Sister Alcoholism Parkinson disease Substance abuse Social History Housing: House Alcohol intake: current Alcohol intake frequency: a few times a month Patient Tobacco Use Status: Never used Tobacco e-Cigarette/Vaping Use: Never Used Second Hand Smoke Exposure: No service: No Current occupational status: employed Cognitive needs: No Hearing needs: No Vision needs: No Review of Systems Narrative Review of Systems - Neurological: Reports excruciating, burning, and tingling pain in the right great toe with associated numbness and radiation down the leg. - Musculoskeletal: Denies back pain, including with flexion and extension. - Constitutional: Reports poor sleep. - Psychiatric: Reports claustrophobia. Physical Exam Exam Exam: Physical Exam Lumbar Spine: Examination of her lumbar spine, there is no visible swelling or deformity. She is tender to lower lumbar facets. She is otherwise nontender. Full range of motion of the lumbar spine. She does have an increase in pain with facet loading. Special Tests: Lhermittes sign was negative Heel Toe walk is normal Left straight leg raise: Negative Right straight leg raise: Positive straight leg raise on the right. Special tests Nilesh test is negative Ganslen's test is negative SI Joint compression test negative Gustavo test negative Piriformis stretch is negative Lower Extremities: Full range of motion bilateral lower extremities. No calf pain or edema. Neuro: Sensation: Intact to lower extremities bilaterally Strength L2 (Psoas): 5/5 on the left and 5/5 on the right. L3 (Quads): 5/5 on the left and 5/5 on the right. L4 (Ant tibialis): 5/5 on the left and 5/5 on the right. L5 (EHL) 5/5 on the left and 5/5 on the right. S1 (Gastroc): 5/5 on the left and 5/5 on the right. DTR L4: (Patellar) Left 2 Right 2 S1: (Achilles) Left 2 Right 2 Babinski Downgoing No pathologic clonus. No involuntary movement. Vital Signs: BMI result Body Mass Index 30.2 Assessment & Plan Assessment & Plan (1) Lumbar radiculopathy: Code(s): M54.16 - Radiculopathy, lumbar region Category: Medical (2) Neuropathy: Code(s): G62.9 - Polyneuropathy, unspecified Category: Medical Plan Pain Management - Affect: The pain is described as excruciating and interferes with sleep. - Analgesia: The patient previously tried gabapentin 300 mg without any benefit. - Adverse Effects: The patient does not recall if gabapentin caused tiredness. - Activities of Daily Living: The pain is so severe she cannot have blankets touch her toe, which affects her sleep. - Aberrant Drug-Related Behaviors: None reported. Plan Patient was informed and verbally consented to the use of an ambient scribe for clinic note documentation during this visit. 1. Right Foot Neuropathic Pain The patient's symptoms of burning, tingling pain are characteristic of a neuropathy. A prior EMG confirmed objective evidence of peroneal nerve damage, which could be the source of her symptoms. However, given her history of L4-L5 surgery, a pinched nerve in the back remains a differential. Patient has failed conservative treatment by completing physical therapy. An X-ray and MRI of the lumbar spine will be ordered to rule out a pinched nerve. For symptomatic management, gabapentin 600 mg will be prescribed to be taken as needed for pain, as her previous 300 mg dose was subtherapeutic. The patient can take it up to three times a day if her pain becomes daily. 2. Claustrophobia The patient reports claustrophobia and expresses concern about undergoing an MRI. To facilitate the procedure, Ativan will be prescribed for her to take beforehand. Discussion Notes I discussed with the patient that her symptoms are consistent with nerve pain. I explained that while we have objective evidence of peroneal nerve damage from a past EMG, we should also rule out a pinched nerve in her back as a cause for her pain, given her surgical history. To do this, I will order an X-ray and MRI of her back. We also discussed medication management. I explained that although the 300 mg dose of gabapentin did not work, it was likely too low a dose, and that a higher dose could be effective for her nerve pain. I will prescribe gabapentin 600 mg for her to use as needed when she has symptoms. I acknowledged her PCP's reasonable concern about adding medication before a definitive diagnosis is found, but also stressed the importance of managing her excruciating pain in the interim. We discussed that if her symptoms become daily, she can use it regularly, but should not stop it abruptly without weaning. Since the patient is claustrophobic, I will prescribe Ativan for her to take prior to her MRI. Patient Instructions - You will be scheduled for an X-ray and an MRI of your lower back to check for a pinched nerve. - A prescription for Ativan will be sent for you to take before the MRI to help with your claustrophobia. - A new prescription for gabapentin 600 mg will be sent to your pharmacy. - You should take one tablet of gabapentin when your toe pain occurs. - If the pain starts happening every day, you can take the medication up to three times per day, but do not stop taking it suddenly if you use it regularly. - Let us know if the medication makes you too tired or causes other problems. - You can continue with acupuncture if you feel it is helping you. Orders: Orders XR lumbar spine 4V min Today M54.9 - Dorsalgia, unspecified MR lumbar spine wo/w con Today M51.16 - Intervertebral disc disorders with radiculopathy, lumbar region Medications: New gabapentin 600 mg PO TID 90 tabs 0RF 30 days G57.30 - Lesion of lateral popliteal nerve, unspecified lower limb, R20.0 - Anesthesia of skin lorazepam (Ativan) 1 tab, 1 hour prior to MRI 1 mg PO DAILY PRN 1 tab 0RF anxiety 1 day F40.240 - Claustrophobia Coding Level of Care Code Tele New Pt Level 4 (73922) Diagnoses Lumbar radiculopathy M54.16 Neuropathy G62.9
--- OUTSIDE RECORDS SUMMARY | 2025-05-27 15:00 | XMS_ITS | Clinical Summary ---
Author Organization [facility] Prior to 11/07/[address] [place] [id number] Care Team Providers Care Document Processing Specialist Name Role Phone Unavailable Primary Care Provider [...]
--- OUTSIDE RECORDS SUMMARY | 2025-05-27 15:00 | XMS_ITS | Clinical Summary ---
Author Organization [facility] Address [address] [place] [address] Care Team Providers Care Yard Truck Driver Name Role Phone Pcp, No Primary Care [...] Vaccine 01/08/2025 02/10/2010 COVID-19 Vaccine (1 - 2024-2 6 season) 2025 RSV Vaccine 50 years and old er and Patients (1 - 1-dose 75+ series) 2034 Hepatitis B Vaccines Aged Out No long er eligible based on patient's age to complete this topic Insurance [employer] Care Teams Yard Truck Driver Relationship Specialty Start Date End Date Pcp, No PCP - General General Medicine 04/20/21
--- OUTSIDE RECORDS SUMMARY | 2025-05-27 15:00 | XMS_ITS | Clinical Summary ---
Author Organization [facility] [address] [facility] Address [address] [place] [address] Phone Care Team Providers Care Agency Owner Name Role Phone Haylie Hensley MD Primary [...] Office Visit Gastroenterology - [address] [facility] [address] [place] [address] Mellisa Canada PA Gastroesophageal reflux disease, unspecified [...] age to complete this topic Insurance MEDICARE [facility] [place] Care Teams Agency Owner Relationship Specialty Start Date End Date Haylie Hensley MD [address] [place] [address] PCP - General Internal Medicine 04/03/24
== END 2025-05-27 12:44 | disposition home or self-care (01) ==
LOC: HO.HPHYS 11:26
PROVIDERS: PCP Internal Medicine; Visit Provider Physician Assistant
DX: M54.16 Radiculopathy, lumbar region (principal); G62.9 Polyneuropathy, unspecified
CPT/HCPCS: 99204